=== PATIENT | female | born 1960 | race Caucasian/White ===

== ENCOUNTER 2017-12-21 14:34 | Inpatient (IN) ==
[2017-12-21] MEDS ORDERED: traMADol 50 MG TABLET PO PRN (18:59)
[2017-12-21] MEDS ORDERED: Nystatin POWDER 30 GM BOTTLE TP PRN (18:59)
[2017-12-21] MEDS ORDERED: Nystatin Cream 15 GM TUBE TP PRN (18:59)
[2017-12-21] MEDS: traZODone 50 MG TABLET PO PRN (20:50)
[2017-12-21] MEDS: *HR* OxyCODONE Immed Rel 5 MG TABLET PO PRN (20:50)
[2017-12-21] MEDS: Gabapentin 300 MG CAPSULE PO SCH (20:51)
[2017-12-21] MEDS: Loratadine 10 MG TABLET PO SCH (20:51)
[2017-12-21] MEDS: Topiramate 100 MG TABLET PO SCH (20:51)
[2017-12-21] MEDS: *HR* LORazepam 0.5 MG TABLET PO PRN (20:51)
[2017-12-22] MEDS: *HR* Enoxaparin 30 MG/0.3 ML SYRINGE SQ SCH ×2 (05:36→18:10)
[2017-12-22] MEDS: *HR* OxyCODONE Immed Rel 5 MG TABLET PO PRN ×3 (05:36→20:22)
[2017-12-22 06:17] LABS: Basophils % 0.4 %; Eosinophils % 0.3 %; Hematocrit 26.3 % (35.3-44.9); Hemoglobin 8.4 g/dL (11.5-15.4); Immature Granulocytes % 1.1 % (0-4); Lymphocytes # 1.7 K/mcL (0.6-4.6); Lymphocytes % 17.2 %; Mean Corpuscular HGB Conc 31.9 g/dL (31.6-35.5); Mean Corpuscular Hemoglobin 30.2 pg (28.0-33.3); Mean Corpuscular Volume 94.6 fL (83.0-100.0); Mean Platelet Volume 9.6 fL (9.4-12.4); Monocytes # 1.2 K/mcL (0.0-1.3); Monocytes % 11.5 %; Platelet Count 201 K/mcL (140-400); Red Blood Count 2.78 M/mcL (3.82-4.97); Red Cell Distribution Width 15.2 % (11.5-14.5); Segmented Neutrophils % 69.5 %
[2017-12-22 06:33] LABS: INR 1.3; Prothrombin Time 14.5 Seconds (9.4-12.1)
[2017-12-22 06:36] LABS: Activated Partial Thrombo Time 30.7 Seconds (26.0-36.0)
[2017-12-22 06:46] LABS: BUN/Creatinine Ratio 21 (6-26); Blood Urea Nitrogen 13 mg/dL (6-20); Calcium 9.4 mg/dL (8.6-10.3); Carbon Dioxide 20 mEq/L (23-29); Chloride 100 mEq/L (98-107); Glucose 123 mg/dL (70-105); Osmolality,Calculated 273 (280-300); Potassium 3.8 mEq/L (3.5-5.1); Sodium 131 mEq/L (136-145); eGFR For Non-African Americans > 60 (> 60)
[2017-12-22] MEDS: Topiramate 100 MG TABLET PO SCH ×2 (10:08→20:22)
[2017-12-22] MEDS: Gabapentin 300 MG CAPSULE PO SCH ×3 (10:09→20:22)
[2017-12-22] MEDS: Furosemide 20 MG TABLET PO SCH (14:46)
[2017-12-22] MEDS ORDERED: *HR* OxyCODONE Immed Rel 5 MG TABLET PO PRN (16:37)
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
[2017-12-22] MEDS ORDERED: *HR* Warfarin 5 MG TABLET PO SCH (18:00)
[2017-12-22] MEDS: MOM Conc 10 ML UD.LIQ PO SCH (18:12)
[2017-12-22] MEDS: *HR* FentaNYL PATCH 12 MCG PATCH TD SCH (18:13)
[2017-12-22] MEDS: *HR* Warfarin 5 MG TABLET PO SCH (18:13)
[2017-12-22] MEDS: Acetaminophen 325 MG TABLET PO SCH (18:13)
[2017-12-22] MEDS: traZODone 50 MG TABLET PO PRN (20:21)
[2017-12-22] MEDS: Loratadine 10 MG TABLET PO SCH (20:22)
[2017-12-23] MEDS: Acetaminophen 325 MG TABLET PO SCH ×4 (00:59→17:21)
[2017-12-23] MEDS: *HR* OxyCODONE Immed Rel 5 MG TABLET PO PRN ×3 (06:19→21:19)
[2017-12-23] MEDS: *HR* Enoxaparin 30 MG/0.3 ML SYRINGE SQ SCH ×2 (06:19→17:08)
[2017-12-23] MEDS: Gabapentin 300 MG CAPSULE PO SCH ×3 (09:36→22:41)
--- NOTE | 2017-12-23 09:36 | Internal Med Progress Note ---
Date of Encounter: 12/23/17 Time of Encounter: 09:25 - Assessment and plan (1) Status post total knee replacement, left Current Visit: No Status: Acute Assessment and plan: December 23. Continue therapy. Continue Lovenox until Coumadin dose therapeutic. (2) Anemia Current Visit: Yes Status: Acute Assessment and plan: December 23. Recheck CBC today. Qualifiers: Anemia type: unspecified type Qualified Code(s): D64.9 - Anemia, unspecified (3) Cardiomyopathy Current Visit: No Status: Acute Assessment and plan: December 23. Check Bn peptide Qualifiers: Cardiomyopathy type: unspecified Qualified Code(s): I42.9 - Cardiomyopathy, unspecified (4) CHF (congestive heart failure) Current Visit: No Status: Chronic Assessment and plan: December 23. As above Qualifiers: Qualified Code(s): I50.23 - Acute on chronic systolic (congestive) heart failure (5) History of pulmonary embolism Current Visit: No Status: Acute Assessment and plan: December 23. Monitor INR (6) HTN (hypertension) Current Visit: No Status: Chronic Assessment and plan: December 23. Hold metoprol today since borderline hypotensive. Qualifiers: Hypertension type: essential hypertension Qualified Code(s): I10 - Essential (primary) hypertension - Subjective Interval history: December 23. She has no new complaints. She states the Duragesic patch has lessened but not resolved her pain - Constitutional Vitals: Temp Pulse Resp BP Pulse Ox 97.7 F 92 17 99/62 97 12/23/17 07:00 12/23/17 07:00 12/23/17 07:00 12/23/17 07:00 12/23/17 07:00 Exam: She is resting comfortably in bed and appears in no acute distress. Her affect is bright and cheerful. I reviewed her medications, vitals, and lab results. Internal Medicine: Result - Labs CBC & Chem 7: 12/22/17 05:25 12/22/17 05:25 - ABG Interpretation ABG results: PT/INR, D-dimer PT 14.5 Seconds (9.4-12.1) H 12/22/17 05:25 Consult Discharge Plan - Plan Referrals: Aylin Smith MD [Primary Care Provider] - 1 week
[2017-12-23] MEDS: Topiramate 100 MG TABLET PO SCH ×2 (09:37→21:17)
[2017-12-23] MEDS: Methyl Salicylate/Menthol 28 GM TUBE TP SCH (09:38)
[2017-12-23] MEDS: Furosemide 20 MG TABLET PO SCH (09:38)
[2017-12-23 09:59] LABS: Basophils % 0.5 %; Eosinophils # 0.1 K/mcL (0.0-0.6); Eosinophils % 1.5 %; Hematocrit 27.8 % (35.3-44.9); Hemoglobin 8.9 g/dL (11.5-15.4); Lymphocytes # 1.5 K/mcL (0.6-4.6); Lymphocytes % 17.8 %; Mean Corpuscular Volume 93.6 fL (83.0-100.0); Mean Platelet Volume 8.9 fL (9.4-12.4); Monocytes # 1.3 K/mcL (0.0-1.3); Monocytes % 15.3 %; Neutrophils # 5.5 K/mcL (1.6-8.9); Platelet Count 227 K/mcL (140-400); Red Blood Count 2.97 M/mcL (3.82-4.97); Red Cell Distribution Width 15.1 % (11.5-14.5); Segmented Neutrophils % 63.9 %
[2017-12-23 10:30] LABS: BUN/Creatinine Ratio 29 (6-26); Blood Urea Nitrogen 20 mg/dL (6-20); Carbon Dioxide 23 mEq/L (23-29); Chloride 103 mEq/L (98-107); Glucose 115 mg/dL (70-105); Osmolality,Calculated 280 (280-300); Potassium 4.3 mEq/L (3.5-5.1); Sodium 133 mEq/L (136-145); eGFR For Non-African Americans > 60 (> 60)
[2017-12-23] MEDS: *HR* Warfarin 5 MG TABLET PO SCH (17:14)
[2017-12-23] MEDS: traZODone 50 MG TABLET PO PRN (21:17)
[2017-12-23] MEDS: Loratadine 10 MG TABLET PO SCH (21:18)
[2017-12-23] MEDS: *HR* LORazepam 0.5 MG TABLET PO PRN (22:41)
[2017-12-24] MEDS: Acetaminophen 325 MG TABLET PO SCH ×4 (00:59→17:42)
[2017-12-24] MEDS: *HR* OxyCODONE Immed Rel 5 MG TABLET PO PRN ×5 (03:01→21:28)
[2017-12-24] MEDS: *HR* Enoxaparin 30 MG/0.3 ML SYRINGE SQ SCH ×2 (06:29→17:23)
[2017-12-24] MEDS: Furosemide 20 MG TABLET PO SCH (08:20)
[2017-12-24] MEDS: Gabapentin 300 MG CAPSULE PO SCH ×3 (08:32→21:26)
[2017-12-24] MEDS: Topiramate 100 MG TABLET PO SCH ×2 (08:33→21:26)
[2017-12-24] MEDS: Methyl Salicylate/Menthol 28 GM TUBE TP SCH (08:48)
[2017-12-24] MEDS: MOM Conc 10 ML UD.LIQ PO SCH (17:19)
[2017-12-24] MEDS: *HR* Warfarin 5 MG TABLET PO SCH (17:20)
--- NOTE | 2017-12-24 17:54 | Internal Med Progress Note ---
Date of Encounter: 12/24/17 Time of Encounter: 17:40 - Assessment and plan (1) Status post total knee replacement, left Current Visit: No Status: Acute Assessment and plan: December 23. Continue therapy. Continue Lovenox until Coumadin dose therapeutic. December 24. Check pro time in a.m. (2) Anemia Current Visit: Yes Status: Acute Assessment and plan: December 23. Recheck CBC today. December 24. Hemoglobin improved to 8.9 yesterday. Recheck labs in a.m. Qualifiers: Anemia type: unspecified type Qualified Code(s): D64.9 - Anemia, unspecified (3) Cardiomyopathy Current Visit: No Status: Acute Assessment and plan: December 23. Check Bn peptide December 24. BN peptide normal at 17. Continue Lasix and Lopressor. Qualifiers: Cardiomyopathy type: unspecified Qualified Code(s): I42.9 - Cardiomyopathy, unspecified (4) CHF (congestive heart failure) Current Visit: No Status: Chronic Assessment and plan: December 23. As above Qualifiers: Qualified Code(s): I50.23 - Acute on chronic systolic (congestive) heart failure (5) History of pulmonary embolism Current Visit: No Status: Acute Assessment and plan: December 23. Monitor INR December 24. Check INR in a.m. Continue Coumadin and Lovenox. (6) HTN (hypertension) Current Visit: No Status: Chronic Assessment and plan: December 23. Hold metoprol today since borderline hypotensive. December 24. Borderline hypotensive. Decrease metoprolol to 25 mg twice a day. Qualifiers: Hypertension type: essential hypertension Qualified Code(s): I10 - Essential (primary) hypertension - Subjective Interval history: December 23. She has no new complaints. She states the Duragesic patch has lessened but not resolved her pain December 24. She has no new complaints. She reports her pain has not significantly changed since yesterday. She reports she is taking Reglan for migraine headache treatment rather than for nausea. - Constitutional Vitals: Temp Pulse Resp BP Pulse Ox 98.3 F 86 18 98/60 96 12/24/17 07:55 12/24/17 07:55 12/24/17 07:55 12/24/17 07:55 12/24/17 07:55 Exam: She is resting comfortably in bed and appears in no acute distress. Her affect is overall cheerful. I reviewed her medications and lab results. Internal Medicine: Result - Labs CBC & Chem 7: 12/23/17 09:51 12/23/17 09:51 - ABG Interpretation ABG results: PT/INR, D-dimer PT 14.5 Seconds (9.4-12.1) H 12/22/17 05:25 Consult Discharge Plan - Plan Referrals: Aylin Smith MD [Primary Care Provider] - 1 week
[2017-12-24] MEDS: traZODone 50 MG TABLET PO PRN (21:26)
[2017-12-24] MEDS: *HR* LORazepam 0.5 MG TABLET PO PRN (21:27)
[2017-12-24] MEDS: Loratadine 10 MG TABLET PO SCH (21:28)
[2017-12-25] MEDS: Acetaminophen 325 MG TABLET PO SCH ×4 (00:17→17:07)
[2017-12-25] MEDS: *HR* OxyCODONE Immed Rel 5 MG TABLET PO PRN ×5 (03:43→20:34)
[2017-12-25] MEDS: *HR* Enoxaparin 30 MG/0.3 ML SYRINGE SQ SCH ×2 (06:26→17:07)
[2017-12-25 06:33] LABS: Basophils # 0.1 K/mcL (0.0-0.2); Basophils % 0.8 %; Eosinophils # 0.3 K/mcL (0.0-0.6); Eosinophils % 3.5 %; Hematocrit 27.2 % (35.3-44.9); Hemoglobin 8.7 g/dL (11.5-15.4); Immature Granulocytes % 1.4 % (0-4); Lymphocytes # 1.6 K/mcL (0.6-4.6); Lymphocytes % 19.7 %; Mean Corpuscular Volume 93.8 fL (83.0-100.0); Mean Platelet Volume 8.9 fL (9.4-12.4); Monocytes % 12.4 %; Neutrophils # 5.1 K/mcL (1.6-8.9); Platelet Count 360 K/mcL (140-400); Red Cell Distribution Width 14.6 % (11.5-14.5); Segmented Neutrophils % 62.2 %
[2017-12-25 06:43] LABS: INR 1.4; Prothrombin Time 15.5 Seconds (9.4-12.1)
[2017-12-25] MEDS: Gabapentin 300 MG CAPSULE PO SCH ×3 (07:45→20:35)
[2017-12-25] MEDS: Topiramate 100 MG TABLET PO SCH ×2 (07:45→20:33)
[2017-12-25] MEDS: Methyl Salicylate/Menthol 28 GM TUBE TP SCH (07:46)
[2017-12-25] MEDS: Furosemide 20 MG TABLET PO SCH (07:51)
[2017-12-25] MEDS: *HR* Warfarin 5 MG TABLET PO SCH (17:07)
[2017-12-25] MEDS: *HR* FentaNYL PATCH 12 MCG PATCH TD SCH (17:08)
[2017-12-25] MEDS ORDERED: *HR* Warfarin 5 MG TABLET PO SCH (18:00)
[2017-12-25] MEDS: *HR* LORazepam 0.5 MG TABLET PO PRN (20:33)
[2017-12-25] MEDS: Loratadine 10 MG TABLET PO SCH (20:34)
[2017-12-25] MEDS: traZODone 50 MG TABLET PO PRN (20:35)
[2017-12-26] MEDS: Acetaminophen 325 MG TABLET PO SCH ×4 (01:47→17:06)
[2017-12-26] MEDS: *HR* OxyCODONE Immed Rel 5 MG TABLET PO PRN ×5 (02:28→22:00)
[2017-12-26] MEDS: *HR* Enoxaparin 30 MG/0.3 ML SYRINGE SQ SCH ×2 (05:44→17:06)
[2017-12-26] MEDS: Gabapentin 300 MG CAPSULE PO SCH ×3 (09:07→20:43)
[2017-12-26] MEDS: Furosemide 20 MG TABLET PO SCH (09:08)
[2017-12-26] MEDS: Topiramate 100 MG TABLET PO SCH ×2 (09:08→20:43)
[2017-12-26] MEDS: Methyl Salicylate/Menthol 28 GM TUBE TP SCH (09:09)
--- NOTE | 2017-12-26 12:46 | Internal Med Progress Note ---
Date of Encounter: 12/26/17 Time of Encounter: 12:35 - Assessment and plan (1) Status post total knee replacement, left Current Visit: No Status: Acute Assessment and plan: December 23. Continue therapy. Continue Lovenox until Coumadin dose therapeutic. December 24. Check pro time in a.m. December 26. INR subtherapeutic at 1.4. Increase Coumadin dose to 7 mg daily and continue to monitor INR. (2) Anemia Current Visit: Yes Status: Acute Assessment and plan: December 23. Recheck CBC today. December 24. Hemoglobin improved to 8.9 yesterday. Recheck labs in a.m. December 26. Hemoglobin decreased to 8.7. Check anemia testing in a.m. Qualifiers: Anemia type: unspecified type Qualified Code(s): D64.9 - Anemia, unspecified (3) Cardiomyopathy Current Visit: No Status: Acute Assessment and plan: December 23. Check Bn peptide December 24. BN peptide normal at 17. Continue Lasix and Lopressor. Qualifiers: Cardiomyopathy type: unspecified Qualified Code(s): I42.9 - Cardiomyopathy, unspecified (4) CHF (congestive heart failure) Current Visit: No Status: Chronic Assessment and plan: December 23. As above Qualifiers: Qualified Code(s): I50.23 - Acute on chronic systolic (congestive) heart failure (5) History of pulmonary embolism Current Visit: No Status: Acute Assessment and plan: December 23. Monitor INR December 24. Check INR in a.m. Continue Coumadin and Lovenox. December 26. INR 1.4. Increase Coumadin to 7 mg daily (6) HTN (hypertension) Current Visit: No Status: Chronic Assessment and plan: December 23. Hold metoprol today since borderline hypotensive. December 24. Borderline hypotensive. Decrease metoprolol to 25 mg twice a day. Qualifiers: Hypertension type: essential hypertension Qualified Code(s): I10 - Essential (primary) hypertension - Subjective Interval history: December 23. She has no new complaints. She states the Duragesic patch has lessened but not resolved her pain December 24. She has no new complaints. She reports her pain has not significantly changed since yesterday. She reports she is taking Reglan for migraine headache treatment rather than for nausea. December 26. She has no new complaints and states her pain is minimally changed. - Constitutional Vitals: Temp Pulse Resp BP Pulse Ox 98.3 F 98 16 99/65 96 12/26/17 07:25 12/26/17 07:25 12/26/17 07:25 12/26/17 07:25 12/26/17 07:25 Exam: She is lying in bed and appears in minimal discomfort. She becomes tearful when she describes her pain. I reviewed her medications and lab results. Internal Medicine: Result - Labs CBC & Chem 7: 12/25/17 06:15 12/23/17 09:51 - ABG Interpretation ABG results: PT/INR, D-dimer PT 15.5 Seconds (9.4-12.1) H 12/25/17 06:15 Consult Discharge Plan - Plan Referrals: Aylin Smith MD [Primary Care Provider] - 1 week
[2017-12-26] MEDS: *HR* Warfarin 2 MG TABLET PO SCH (17:07)
[2017-12-26] MEDS: *HR* Warfarin 5 MG TABLET PO SCH (17:07)
[2017-12-26] MEDS: MOM Conc 10 ML UD.LIQ PO SCH (17:08)
[2017-12-26] MEDS: traMADol 50 MG TABLET PO SCH ×2 (17:12→20:44)
[2017-12-26] MEDS: Loratadine 10 MG TABLET PO SCH (20:42)
[2017-12-26] MEDS: traZODone 50 MG TABLET PO PRN (20:43)
[2017-12-26] MEDS: *HR* LORazepam 0.5 MG TABLET PO PRN (22:00)
[2017-12-27] MEDS: Acetaminophen 325 MG TABLET PO SCH ×5 (00:59→22:33)
[2017-12-27] MEDS: *HR* OxyCODONE Immed Rel 5 MG TABLET PO PRN ×5 (04:23→22:33)
[2017-12-27] MEDS: *HR* Enoxaparin 30 MG/0.3 ML SYRINGE SQ SCH ×2 (05:46→18:47)
[2017-12-27 07:02] LABS: Basophils # 0.1 K/mcL (0.0-0.2); Basophils % 0.8 %; Eosinophils # 0.3 K/mcL (0.0-0.6); Eosinophils % 3.3 %; Hemoglobin 8.1 g/dL (11.5-15.4); Immature Granulocytes % 3.9 % (0-4); Lymphocytes # 1.9 K/mcL (0.6-4.6); Lymphocytes % 21.9 %; Mean Corpuscular HGB Conc 31.2 g/dL (31.6-35.5); Mean Corpuscular Hemoglobin 29.8 pg (28.0-33.3); Mean Corpuscular Volume 95.6 fL (83.0-100.0); Mean Platelet Volume 8.7 fL (9.4-12.4); Monocytes # 1.1 K/mcL (0.0-1.3); Monocytes % 12.8 %; Nucleated Red Blood Cells 0.3 /100 WBC (0); Platelet Count 405 K/mcL (140-400); Red Blood Count 2.72 M/mcL (3.82-4.97); Red Cell Distribution Width 14.8 % (11.5-14.5); Segmented Neutrophils % 57.3 %
[2017-12-27] MEDS: Methyl Salicylate/Menthol 28 GM TUBE TP SCH (09:34)
[2017-12-27] MEDS: Furosemide 20 MG TABLET PO SCH (09:35)
[2017-12-27] MEDS: Gabapentin 300 MG CAPSULE PO SCH ×3 (09:36→20:54)
[2017-12-27] MEDS: Topiramate 100 MG TABLET PO SCH ×2 (09:36→20:55)
[2017-12-27] MEDS: traMADol 50 MG TABLET PO SCH ×4 (09:42→20:55)
[2017-12-27 09:53] LABS: % Iron Saturation 12 % (15-50); Iron 39 mcg/dL (50-170); Transferrin 237 mg/dL (203-362)
[2017-12-27 10:12] LABS: Ferritin 69 ng/mL (10-120)
[2017-12-27 10:19] LABS: Folate 6.7 ng/mL (3.0-16.0)
[2017-12-27] MEDS: *HR* Warfarin 5 MG TABLET PO SCH (18:48)
[2017-12-27] MEDS: *HR* Warfarin 2 MG TABLET PO SCH (18:48)
[2017-12-27] MEDS: *HR* LORazepam 0.5 MG TABLET PO PRN (20:53)
[2017-12-27] MEDS: traZODone 50 MG TABLET PO PRN (20:53)
[2017-12-27] MEDS: Loratadine 10 MG TABLET PO SCH (20:55)
[2017-12-28] MEDS: *HR* OxyCODONE Immed Rel 5 MG TABLET PO PRN ×5 (03:27→23:57)
[2017-12-28] MEDS: Acetaminophen 325 MG TABLET PO SCH ×3 (06:42→17:10)
[2017-12-28] MEDS: *HR* Enoxaparin 30 MG/0.3 ML SYRINGE SQ SCH ×2 (06:43→17:10)
[2017-12-28] MEDS: Topiramate 100 MG TABLET PO SCH ×2 (07:49→20:38)
[2017-12-28] MEDS: Gabapentin 300 MG CAPSULE PO SCH ×3 (07:50→20:38)
[2017-12-28] MEDS: Furosemide 20 MG TABLET PO SCH (07:50)
[2017-12-28] MEDS: Methyl Salicylate/Menthol 28 GM TUBE TP SCH ×2 (07:55→23:58)
[2017-12-28] MEDS: traMADol 50 MG TABLET PO SCH ×4 (07:55→23:56)
[2017-12-28] MEDS ORDERED: Cyanocobalamin (B-12) 1,000 MCG/ML VIAL IM ONE (12:42)
--- NOTE | 2017-12-28 12:51 | Internal Med Progress Note ---
Date of Encounter: 12/28/17 Time of Encounter: 12:42 - Assessment and plan (1) Status post total knee replacement, left Current Visit: No Status: Acute Assessment and plan: December 23. Continue therapy. Continue Lovenox until Coumadin dose therapeutic. December 24. Check pro time in a.m. December 26. INR subtherapeutic at 1.4. Increase Coumadin dose to 7 mg daily and continue to monitor INR. December 28. Check INR and other labs today. Venous ultrasound will be done later today to evaluate for DVT. (2) Anemia Current Visit: Yes Status: Acute Assessment and plan: December 23. Recheck CBC today. December 24. Hemoglobin improved to 8.9 yesterday. Recheck labs in a.m. December 26. Hemoglobin decreased to 8.7. Check anemia testing in a.m. December 28. Anemia testing showed iron 39, transferrin saturation 12%, transferrin 237, ferritin 69, B12 166, and folate 6.7. She will receive a B12 injection and start oral ferrous sulfate and ascorbic acid tomorrow. Qualifiers: Anemia type: unspecified type Qualified Code(s): D64.9 - Anemia, unspecified (3) Cardiomyopathy Current Visit: No Status: Acute Assessment and plan: December 23. Check Bn peptide December 24. BN peptide normal at 17. Continue Lasix and Lopressor. Qualifiers: Cardiomyopathy type: unspecified Qualified Code(s): I42.9 - Cardiomyopathy, unspecified (4) CHF (congestive heart failure) Current Visit: No Status: Chronic Assessment and plan: December 23. As above Qualifiers: Qualified Code(s): I50.23 - Acute on chronic systolic (congestive) heart failure (5) History of pulmonary embolism Current Visit: No Status: Acute Assessment and plan: December 23. Monitor INR December 24. Check INR in a.m. Continue Coumadin and Lovenox. December 26. INR 1.4. Increase Coumadin to 7 mg daily December 28. Check INR today. (6) HTN (hypertension) Current Visit: No Status: Chronic Assessment and plan: December 23. Hold metoprol today since borderline hypotensive. December 24. Borderline hypotensive. Decrease metoprolol to 25 mg twice a day. December 28. Continue present dose metoprolol. Qualifiers: Hypertension type: essential hypertension Qualified Code(s): I10 - Essential (primary) hypertension - Subjective Interval history: December 23. She has no new complaints. She states the Duragesic patch has lessened but not resolved her pain December 24. She has no new complaints. She reports her pain has not significantly changed since yesterday. She reports she is taking Reglan for migraine headache treatment rather than for nausea. December 26. She has no new complaints and states her pain is minimally changed. December 28. She has no new complaints. She saw the orthopedist staff today. There was concern she might have a leg DVT she has history of DVTs and complained of significant leg pain. Venous ultrasound was ordered and will be done later today. She was ordered topical Voltaren to alternate with topical BenGay. - Constitutional Vitals: Temp Pulse Resp BP Pulse Ox 97.7 F 96 16 111/74 97 12/28/17 06:46 12/28/17 06:46 12/28/17 06:46 12/28/17 06:46 12/28/17 06:46 Exam: She is resting comfortably in bed and appears in no severe distress. Her affect is more cheerful today. I reviewed her medications and lab results. Internal Medicine: Result - Labs CBC & Chem 7: 12/27/17 06:44 12/23/17 09:51 - ABG Interpretation ABG results: PT/INR, D-dimer PT 15.5 Seconds (9.4-12.1) H 12/25/17 06:15 Consult Discharge Plan - Plan Referrals: Aylin Smith MD [Primary Care Provider] - 1 week
[2017-12-28 14:48] LABS: Basophils # 0.1 K/mcL (0.0-0.2); Basophils % 0.6 %; Eosinophils # 0.3 K/mcL (0.0-0.6); Eosinophils % 3.4 %; Hematocrit 25.3 % (35.3-44.9); Hemoglobin 7.9 g/dL (11.5-15.4); Immature Granulocytes % 4.4 % (0-4); Lymphocytes # 1.9 K/mcL (0.6-4.6); Lymphocytes % 20.3 %; Mean Corpuscular HGB Conc 31.2 g/dL (31.6-35.5); Mean Corpuscular Hemoglobin 30.5 pg (28.0-33.3); Mean Corpuscular Volume 97.7 fL (83.0-100.0); Monocytes # 1.1 K/mcL (0.0-1.3); Monocytes % 11.9 %; Neutrophils # 5.7 K/mcL (1.6-8.9); Nucleated Red Blood Cells 0.5 /100 WBC (0); Platelet Count 430 K/mcL (140-400); Red Blood Count 2.59 M/mcL (3.82-4.97); Red Cell Distribution Width 15.1 % (11.5-14.5); Segmented Neutrophils % 59.4 %
[2017-12-28 14:55] LABS: INR 1.5; Prothrombin Time 16.4 Seconds (9.4-12.1)
[2017-12-28 15:03] LABS: BUN/Creatinine Ratio 34 (6-26); Blood Urea Nitrogen 24 mg/dL (6-20); Calcium 8.6 mg/dL (8.6-10.3); Carbon Dioxide 25 mEq/L (23-29); Chloride 105 mEq/L (98-107); Glucose 107 mg/dL (70-105); Osmolality,Calculated 289 (280-300); Potassium 3.8 mEq/L (3.5-5.1); Sodium 137 mEq/L (136-145); eGFR For Non-African Americans > 60 (> 60)
[2017-12-28] MEDS: *HR* Warfarin 2 MG TABLET PO SCH (17:09)
[2017-12-28] MEDS: *HR* Warfarin 5 MG TABLET PO SCH (17:09)
[2017-12-28] MEDS: *HR* FentaNYL PATCH 12 MCG PATCH TD SCH (17:10)
[2017-12-28] MEDS: MOM Conc 10 ML UD.LIQ PO SCH (17:11)
[2017-12-28] MEDS: VOLTAREN 1% GEL TP SCH (20:08)
[2017-12-28] MEDS: *HR* LORazepam 0.5 MG TABLET PO PRN (20:36)
[2017-12-28] MEDS: traZODone 50 MG TABLET PO PRN (20:37)
[2017-12-28] MEDS: Loratadine 10 MG TABLET PO SCH (20:38)
[2017-12-29] MEDS ORDERED: Methyl Salicylate/Menthol 28 GM TUBE TP SCH
[2017-12-29] MEDS: Acetaminophen 325 MG TABLET PO SCH ×4 (02:33→17:59)
[2017-12-29] MEDS: *HR* OxyCODONE Immed Rel 5 MG TABLET PO PRN ×5 (04:14→21:39)
[2017-12-29] MEDS: Ascorbic Acid 500 MG TABLET PO SCH (06:48)
[2017-12-29] MEDS: *HR* Enoxaparin 30 MG/0.3 ML SYRINGE SQ SCH ×2 (06:49→17:58)
[2017-12-29] MEDS: VOLTAREN 1% GEL TP SCH ×3 (07:38→18:01)
[2017-12-29] MEDS: traMADol 50 MG TABLET PO SCH ×4 (08:04→21:55)
[2017-12-29] MEDS: Furosemide 20 MG TABLET PO SCH (08:04)
[2017-12-29] MEDS: Gabapentin 300 MG CAPSULE PO SCH ×3 (08:05→21:39)
[2017-12-29] MEDS: Topiramate 100 MG TABLET PO SCH ×2 (08:05→21:40)
[2017-12-29] MEDS: Methyl Salicylate/Menthol 28 GM TUBE TP SCH ×2 (08:08→21:42)
--- NOTE | 2017-12-29 14:53 | Internal Med Progress Note ---
Date of Encounter: 12/29/17 Time of Encounter: 14:45 - Assessment and plan (1) Status post total knee replacement, left Current Visit: No Status: Acute Assessment and plan: December 23. Continue therapy. Continue Lovenox until Coumadin dose therapeutic. December 24. Check pro time in a.m. December 26. INR subtherapeutic at 1.4. Increase Coumadin dose to 7 mg daily and continue to monitor INR. December 28. Check INR and other labs today. Venous ultrasound will be done later today to evaluate for DVT. December 29. INR was 1.5 yesterday. Continue present dose Coumadin and recheck in a.m. Venous ultrasound showed no DVT. (2) Anemia Current Visit: Yes Status: Acute Assessment and plan: December 23. Recheck CBC today. December 24. Hemoglobin improved to 8.9 yesterday. Recheck labs in a.m. December 26. Hemoglobin decreased to 8.7. Check anemia testing in a.m. December 28. Anemia testing showed iron 39, transferrin saturation 12%, transferrin 237, ferritin 69, B12 166, and folate 6.7. She will receive a B12 injection and start oral ferrous sulfate and ascorbic acid tomorrow. December 29. Hemoglobin decreased slightly to 7.9 yesterday. BUN has risen to 24. I told her I suspected she might have a very slow upper GI source of blood loss. Continue to monitor. Qualifiers: Anemia type: unspecified type Qualified Code(s): D64.9 - Anemia, u nspecified (3) Cardiomyopathy Current Visit: No Status: Acute Assessment and plan: December 23. Check Bn peptide December 24. BN peptide normal at 17. Continue Lasix and Lopressor. Qualifiers: Cardiomyopathy type: unspecified Qualified Code(s): I42.9 - Cardiomyopathy, unspecified (4) CHF (congestive heart failure) Current Visit: No Status: Chronic Assessment and plan: December 23. As above Qualifiers: Qualified Code(s): I50.23 - Acute on chronic systolic (congestive) heart failure (5) History of pulmonary embolism Current Visit: No Status: Acute Assessment and plan: December 23. Monitor INR December 24. Check INR in a.m. Continue Coumadin and Lovenox. December 26. INR 1.4. Increase Coumadin to 7 mg daily December 28. Check INR today. December 29. Recheck INR in a.m. (6) HTN (hypertension) Current Visit: No Status: Chronic Assessment and plan: December 23. Hold metoprol today since borderline hypotensive. December 24. Borderline hypotensive. Decrease metoprolol to 25 mg twice a day. December 28. Continue present dose metoprolol. Qualifiers: Hypertension type: essential hypertension Qualified Code(s): I10 - Essential (primary) hypertension - Subjective Interval history: December 23. She has no new complaints. She states the Duragesic patch has lessened but not resolved her pain December 24. She has no new complaints. She reports her pain has not significantly changed since yesterday. She reports she is taking Reglan for migraine headache treatment rather than for nausea. December 26. She has no new complaints and states her pain is minimally changed. December 28. She has no new complaints. She saw the orthopedist staff today. There was concern she might have a leg DVT she has history of DVTs and complained of significant leg pain. Venous ultrasound was ordered and will be done later today. She was ordered topical Voltaren to alternate with topical BenGay. December 29. She has no new complaints. She states her pain is very gradually lessening. - Constitutional Vitals: Temp Pulse Resp BP Pulse Ox 98.3 F 90 16 97/63 96 12/29/17 06:33 12/29/17 06:33 12/29/17 06:33 12/29/17 06:33 12/29/17 06:33 Exam: She is resting comfortably in bed and appears in no acute distress. Her affect is overall cheerful. I reviewed her medications and lab results. Internal Medicine: Result - Labs CBC & Chem 7: 12/28/17 14:40 12/28/17 14:40 Labs: BMP 12/28/17 14:40 Sodium 137 Potassium 3.8 Chloride 105 Carbon Dioxide 25 BUN 24 H Creatinine 0.70 Glucose 107 H Calcium 8.6 - ABG Interpretation ABG results: PT/INR, D-dimer PT 16.4 Seconds (9.4-12.1) H 12/28/17 14:40 Consult Discharge Plan - Plan Referrals: Aylin Smith MD [Primary Care Provider] - 1 week
[2017-12-29] MEDS: *HR* Warfarin 5 MG TABLET PO SCH (17:59)
[2017-12-29] MEDS: *HR* Warfarin 2 MG TABLET PO SCH (17:59)
[2017-12-29] MEDS: traZODone 50 MG TABLET PO PRN (21:39)
[2017-12-29] MEDS: Loratadine 10 MG TABLET PO SCH (21:39)
[2017-12-29] MEDS: *HR* LORazepam 0.5 MG TABLET PO PRN (21:41)
[2017-12-30] MEDS: *HR* OxyCODONE Immed Rel 5 MG TABLET PO PRN ×4 (04:39→17:20)
[2017-12-30] MEDS: VOLTAREN 1% GEL TP SCH ×3 (06:35→17:36)
[2017-12-30] MEDS: Ascorbic Acid 500 MG TABLET PO SCH (06:35)
[2017-12-30] MEDS: *HR* Enoxaparin 30 MG/0.3 ML SYRINGE SQ SCH ×2 (06:35→17:17)
[2017-12-30] MEDS: Acetaminophen 325 MG TABLET PO SCH ×4 (06:35→17:22)
[2017-12-30 06:48] LABS: Basophils # 0.1 K/mcL (0.0-0.2); Basophils % 0.7 %; Eosinophils # 0.3 K/mcL (0.0-0.6); Eosinophils % 3.5 %; Hematocrit 24.8 % (35.3-44.9); Hemoglobin 7.6 g/dL (11.5-15.4); Immature Granulocytes % 4.8 % (0-4); Lymphocytes # 1.8 K/mcL (0.6-4.6); Lymphocytes % 20.9 %; Mean Corpuscular HGB Conc 30.6 g/dL (31.6-35.5); Mean Corpuscular Hemoglobin 29.9 pg (28.0-33.3); Mean Corpuscular Volume 97.6 fL (83.0-100.0); Mean Platelet Volume 8.1 fL (9.4-12.4); Monocytes % 10.8 %; Neutrophils # 5.2 K/mcL (1.6-8.9); Nucleated Red Blood Cells 0.5 /100 WBC (0); Platelet Count 453 K/mcL (140-400); Red Blood Count 2.54 M/mcL (3.82-4.97); Red Cell Distribution Width 15.5 % (11.5-14.5); Segmented Neutrophils % 59.3 %
[2017-12-30 06:54] LABS: INR 1.7
[2017-12-30 07:07] LABS: BUN/Creatinine Ratio 35 (6-26); Blood Urea Nitrogen 19 mg/dL (6-20); Calcium 8.8 mg/dL (8.6-10.3); Carbon Dioxide 24 mEq/L (23-29); Chloride 104 mEq/L (98-107); Glucose 94 mg/dL (70-105); Osmolality,Calculated 284 (280-300); Potassium 3.8 mEq/L (3.5-5.1); Sodium 136 mEq/L (136-145); eGFR For Non-African Americans > 60 (> 60)
[2017-12-30] MEDS: Furosemide 20 MG TABLET PO SCH (07:59)
[2017-12-30] MEDS: Topiramate 100 MG TABLET PO SCH ×2 (08:00→20:27)
[2017-12-30] MEDS: Gabapentin 300 MG CAPSULE PO SCH ×3 (08:00→20:27)
[2017-12-30] MEDS: Methyl Salicylate/Menthol 28 GM TUBE TP SCH ×2 (08:01→20:29)
[2017-12-30] MEDS: traMADol 50 MG TABLET PO SCH ×4 (08:07→20:29)
--- NOTE | 2017-12-30 10:54 | Internal Med Progress Note ---
Date of Encounter: 12/30/17 Time of Encounter: 10:45 - Assessment and plan (1) Status post total knee replacement, left Current Visit: No Status: Acute Assessment and plan: December 23. Continue therapy. Continue Lovenox until Coumadin dose therapeutic. December 24. Check pro time in a.m. December 26. INR subtherapeutic at 1.4. Increase Coumadin dose to 7 mg daily and continue to monitor INR. December 28. Check INR and other labs today. Venous ultrasound will be done later today to evaluate for DVT. December 29. INR was 1.5 yesterday. Continue present dose Coumadin and recheck in a.m. Venous ultrasound showed no DVT. December 30. INR was 1.7 today. Continue Coumadin and continue to monitor INR. I told her I felt the left calf pain might be in her hamstring musculature and continued therapy will hopefully lessen the discomfort. (2) Anemia Current Visit: Yes Status: Acute Assessment and plan: December 23. Recheck CBC today. December 24. Hemoglobin improved to 8.9 yesterday. Recheck labs in a.m. December 26. Hemoglobin decreased to 8.7. Check anemia testing in a.m. December 28. Anemia testing showed iron 39, transferrin saturation 12%, transferrin 237, ferritin 69, B12 166, and folate 6.7. She will receive a B12 injection and start oral ferrous sulfate and ascorbic acid tomorrow. December 29. Hemoglobin decreased slightly to 7.9 yesterday. BUN has risen to 24. I told her I suspected she might have a very slow upper GI source of blood loss. Continue to monitor. December 30. Hemoglobin further decreased slightly to 7.6. BUN has decreased to 19 and creatinine decreased to 0.54. Continue to monitor. Qualifiers: Anemia type: unspecified type Qualified Code(s): D64.9 - Anemia, unspecified (3) Cardiomyopathy Current Visit: No Status: Acute Assessment and plan: December 23. Check Bn peptide December 24. BN peptide normal at 17. Continue Lasix and Lopressor. December 30. BN peptide has risen to 111. Continue Lasix and Lopressor and continue to monitor. Qualifiers: Cardiomyopathy type: unspecified Qualified Code(s): I42.9 - Cardiomyopathy, unspecified (4) CHF (congestive heart failure) Current Visit: No Status: Chronic Assessment and plan: December 23. As above Qualifiers: Qualified Code(s): I50.23 - Acute on chronic systolic (congestive) heart failure (5) History of pulmonary embolism Current Visit: No Status: Acute Assessment and plan: December 23. Monitor INR December 24. Check INR in a.m. Continue Coumadin and Lovenox. December 26. INR 1.4. Increase Coumadin to 7 mg daily December 28. Check INR today. December 29. Recheck INR in a.m. December 30. INR higher as per above. Continue Coumadin and Lovenox for now. (6) HTN (hypertension) Current Visit: No Status: Chronic Assessment and plan: December 23. Hold metoprol today since borderline hypotensive. December 24. Borderline hypotensive. Decrease metoprolol to 25 mg twice a day. December 28. Continue present dose metoprolol. Qualifiers: Hypertension type: essential hypertension Qualified Code(s): I10 - Essential (primary) hypertension - Subjective Interval history: December 23. She has no new complaints. She states the Duragesic patch has lessened but not resolved her pain December 24. She has no new complaints. She reports her pain has not significantly changed since yesterday. She reports she is taking Reglan for migraine headache treatment rather than for nausea. December 26. She has no new complaints and states her pain is minimally changed. December 28. She has no new complaints. She saw the orthopedist staff today. There was concern she might have a leg DVT she has history of DVTs and complained of significant leg pain. Venous ultrasound was ordered and will be done later today. She was ordered topical Voltaren to alternate with topical BenGay. December 29. She has no new complaints. She states her pain is very gradually lessening. December 30. She reports discomfort in her posterior thighs (more left side than right side) when sitting in a chair with her legs extended. - Constitutional Vitals: Temp Pulse Resp BP Pulse Ox 98.0 F 90 14 108/72 98 12/30/17 06:29 12/30/17 06:29 12/30/17 06:29 12/30/17 06:29 12/30/17 06:29 Exam: She has mild discomfort on straight leg raising on the left side when her aguilar mstring is stretched stating "that is the pain". She appears in no acute distress overall. I reviewed her medications and lab results. Internal Medicine: Result - Labs CBC & Chem 7: 12/30/17 06:10 12/30/17 06:10 Labs: Short CBC 12/30/17 Range/Units 06:10 WBC 8.8 (4.3-11.1) K/mcL Hgb 7.6 L (11.5-15.4) g/dL Hct 24.8 L (35.3-44.9) % Plt Count 453 H (140-400) K/mcL Neutrophils # 5.2 (1.6-8.9) K/mcL BMP 12/30/17 06:10 Sodium 136 Potassium 3.8 Chloride 104 Carbon Dioxide 24 BUN 19 Creatinine 0.54 L Glucose 94 Calcium 8.8 - ABG Interpretation ABG results: PT/INR, D-dimer PT 19.0 Seconds (9.4-12.1) H 12/30/17 06:10 Consult Discharge Plan - Plan Referrals: Aylin Smith MD [Primary Care Provider] - 1 week
[2017-12-30] MEDS: MOM Conc 10 ML UD.LIQ PO SCH (17:19)
[2017-12-30] MEDS: *HR* Warfarin 2 MG TABLET PO SCH (17:22)
[2017-12-30] MEDS: *HR* Warfarin 5 MG TABLET PO SCH (17:22)
[2017-12-30 19:59] LABS: Bilirubin,Urine Negative (Negative); Blood,Urine Negative (Negative); Clarity,Urine Clear (Clear); Color,Urine Yellow (Yellow); Glucose,Urine (UA) Normal (Normal); Ketones,Urine Negative (Negative); Leukocyte Esterase,Urine Negative (Negative); Nitrite,Urine Negative (Negative); Protein,Urine Negative (Neg-Trace); Specific Gravity,Urine 1.025 (1.010-1.025); Urobilinogen,Urine Normal (Normal)
[2017-12-30] MEDS: Loratadine 10 MG TABLET PO SCH (20:27)
[2017-12-30] MEDS: *HR* LORazepam 0.5 MG TABLET PO PRN (20:28)
[2017-12-30] MEDS: traZODone 50 MG TABLET PO PRN (20:30)
[2017-12-31] MEDS: Acetaminophen 325 MG TABLET PO SCH ×4 (00:25→18:34)
[2017-12-31] MEDS: *HR* OxyCODONE Immed Rel 5 MG TABLET PO PRN ×5 (00:25→18:34)
[2017-12-31] MEDS: Ascorbic Acid 500 MG TABLET PO SCH (06:10)
[2017-12-31] MEDS: *HR* Enoxaparin 30 MG/0.3 ML SYRINGE SQ SCH ×2 (06:11→18:32)
[2017-12-31] MEDS: VOLTAREN 1% GEL TP SCH ×3 (06:11→18:40)
[2017-12-31] MEDS: Furosemide 20 MG TABLET PO SCH (09:14)
[2017-12-31] MEDS: traMADol 50 MG TABLET PO SCH ×4 (09:14→20:47)
[2017-12-31] MEDS: Topiramate 100 MG TABLET PO SCH ×2 (09:14→20:37)
[2017-12-31] MEDS: Gabapentin 300 MG CAPSULE PO SCH ×3 (09:14→20:38)
[2017-12-31] MEDS: Methyl Salicylate/Menthol 28 GM TUBE TP SCH ×2 (11:12→20:39)
[2017-12-31] MEDS: *HR* Warfarin 5 MG TABLET PO SCH (18:33)
[2017-12-31] MEDS: *HR* Warfarin 2 MG TABLET PO SCH (18:33)
[2017-12-31] MEDS: *HR* FentaNYL PATCH 12 MCG PATCH TD SCH (18:35)
[2017-12-31] MEDS: Loratadine 10 MG TABLET PO SCH (20:37)
[2017-12-31] MEDS: *HR* LORazepam 0.5 MG TABLET PO PRN (20:38)
[2017-12-31] MEDS: traZODone 50 MG TABLET PO PRN (20:40)
[2018-01-01] MEDS: Acetaminophen 325 MG TABLET PO SCH ×4 (00:12→18:04)
[2018-01-01] MEDS: *HR* OxyCODONE Immed Rel 5 MG TABLET PO PRN ×5 (03:13→21:59)
[2018-01-01] MEDS: VOLTAREN 1% GEL TP SCH ×3 (06:35→18:06)
[2018-01-01] MEDS: *HR* Enoxaparin 30 MG/0.3 ML SYRINGE SQ SCH ×2 (06:36→17:14)
[2018-01-01] MEDS: Ascorbic Acid 500 MG TABLET PO SCH (06:37)
[2018-01-01] MEDS: Methyl Salicylate/Menthol 28 GM TUBE TP SCH ×2 (08:28→20:46)
[2018-01-01] MEDS: traMADol 50 MG TABLET PO SCH ×4 (08:28→20:41)
[2018-01-01] MEDS: Topiramate 100 MG TABLET PO SCH ×2 (08:29→20:46)
[2018-01-01] MEDS: Furosemide 20 MG TABLET PO SCH (08:29)
[2018-01-01] MEDS: Gabapentin 300 MG CAPSULE PO SCH ×3 (08:29→20:44)
[2018-01-01] MEDS: *HR* Warfarin 5 MG TABLET PO SCH (17:14)
[2018-01-01] MEDS: *HR* Warfarin 2 MG TABLET PO SCH (17:14)
[2018-01-01] MEDS: MOM Conc 10 ML UD.LIQ PO SCH (17:18)
[2018-01-01] MEDS: Loratadine 10 MG TABLET PO SCH (20:41)
[2018-01-01] MEDS: *HR* LORazepam 0.5 MG TABLET PO PRN (20:41)
[2018-01-02] MEDS: Acetaminophen 325 MG TABLET PO SCH ×4 (00:36→17:33)
[2018-01-02] MEDS: *HR* OxyCODONE Immed Rel 5 MG TABLET PO PRN ×4 (03:45→20:27)
[2018-01-02] MEDS: *HR* Enoxaparin 30 MG/0.3 ML SYRINGE SQ SCH ×2 (06:13→17:35)
[2018-01-02] MEDS: VOLTAREN 1% GEL TP SCH ×3 (06:13→17:35)
[2018-01-02] MEDS: Ascorbic Acid 500 MG TABLET PO SCH (06:13)
[2018-01-02] MEDS: traMADol 50 MG TABLET PO SCH ×4 (08:15→21:38)
[2018-01-02] MEDS: Gabapentin 300 MG CAPSULE PO SCH ×3 (08:15→21:38)
[2018-01-02] MEDS: Topiramate 100 MG TABLET PO SCH ×2 (08:15→21:39)
[2018-01-02] MEDS: Methyl Salicylate/Menthol 28 GM TUBE TP SCH ×2 (08:16→20:29)
[2018-01-02] MEDS: Furosemide 20 MG TABLET PO SCH (11:19)
[2018-01-02 11:46] LABS: Basophils # 0.1 K/mcL (0.0-0.2); Basophils % 0.7 %; Eosinophils # 0.2 K/mcL (0.0-0.6); Eosinophils % 2.2 %; Hematocrit 28.7 % (35.3-44.9); Hemoglobin 8.7 g/dL (11.5-15.4); Immature Granulocytes % 1.5 % (0-4); Lymphocytes # 1.3 K/mcL (0.6-4.6); Mean Corpuscular HGB Conc 30.3 g/dL (31.6-35.5); Mean Corpuscular Hemoglobin 29.8 pg (28.0-33.3); Mean Corpuscular Volume 98.3 fL (83.0-100.0); Monocytes # 0.7 K/mcL (0.0-1.3); Monocytes % 9.6 %; Neutrophils # 5.2 K/mcL (1.6-8.9); Platelet Count 438 K/mcL (140-400); Red Blood Count 2.92 M/mcL (3.82-4.97); Red Cell Distribution Width 15.9 % (11.5-14.5)
[2018-01-02 11:49] LABS: INR 1.9; Prothrombin Time 21.8 Seconds (9.4-12.1)
--- NOTE | 2018-01-02 17:00 | Internal Med Progress Note ---
Date of Encounter: 01/02/18 Time of Encounter: 16:50 - Assessment and plan (1) Status post total knee replacement, left Current Visit: No Status: Acute Assessment and plan: December 23. Continue therapy. Continue Lovenox until Coumadin dose therapeutic. December 24. Check pro time in a.m. December 26. INR subtherapeutic at 1.4. Increase Coumadin dose to 7 mg daily and continue to monitor INR. December 28. Check INR and other labs today. Venous ultrasound will be done later today to evaluate for DVT. December 29. INR was 1.5 yesterday. Continue present dose Coumadin and recheck in a.m. Venous ultrasound showed no DVT. December 30. INR was 1.7 today. Continue Coumadin and continue to monitor INR. I told her I felt the left calf pain might be in her hamstring musculature and continued therapy will hopefully lessen the discomfort. January 02. INR was 1.9 today. Increase Coumadin to 7.5 mg daily (2) Anemia Current Visit: Yes Status: Acute Assessment and plan: December 23. Recheck CBC today. December 24. Hemoglobin improved to 8.9 yesterday. Recheck labs in a.m. December 26. Hemoglobin decreased to 8.7. Check anemia testing in a.m. December 28. Anemia testing showed iron 39, transferrin saturation 12%, transferrin 237, ferritin 69, B12 166, and folate 6.7. She will receive a B12 injection and start oral ferrous sulfate and ascorbic acid tomorrow. December 29. Hemoglobin decreased slightly to 7.9 yesterday. BUN has risen to 24. I told her I suspected she might have a very slow upper GI source of blood loss. Continue to monitor. December 30. Hemoglobin further decreased slightly to 7.6. BUN has decreased to 19 and creatinine decreased to 0.54. Continue to monitor. January 02. Hemoglobin increased to 8.7. Continue ferrous sulfate and ascorbic acid. Start oral B12 supplement. Qualifiers: Anemia type: unspecified type Qualified Code(s): D64.9 - Anemia, unspecified (3) Cardiomyopathy Current Visit: No Status: Acute Assessment and plan: December 23. Check Bn peptide December 24. BN peptide normal at 17. Continue Lasix and Lopressor. December 30. BN peptide has risen to 111. Continue Lasix and Lopressor and continue to monitor. January 02. BN peptide normal at 50. Continue Lasix and Lopressor. Qualifiers: Cardiomyopathy type: unspecified Qualified Code(s): I42.9 - Cardiomyopathy, unspecified (4) CHF (congestive heart failure) Current Visit: No Status: Chronic Assessment and plan: December 23. As above Qualifiers: Qualified Code(s): I50.23 - Acute on chronic systolic (congestive) heart failure (5) History of pulmonary embolism Current Visit: No Status: Acute Assessment and plan: December 23. Monitor INR December 24. Check INR in a.m. Continue Coumadin and Lovenox. December 26. INR 1.4. Increase Coumadin to 7 mg daily December 28. Check INR today. December 29. Recheck INR in a.m. December 30. INR higher as per above. Continue Coumadin and Lovenox for now. January 02. Increase Coumadin as per above. (6) HTN (hypertension) Current Visit: No Status: Chronic Assessment and plan: December 23. Hold metoprol today since borderline hypotensive. December 24. Borderline hypotensive. Decrease metoprolol to 25 mg twice a day. December 28. Continue present dose metoprolol. Qualifiers: Hypertension type: essential hypertension Qualified Code(s): I10 - Essential (primary) hypertension - Subjective Interval history: December 23. She has no new complaints. She states the Duragesic patch has lessened but not resolved her pain December 24. She has no new complaints. She reports her pain has not significantly changed since yesterday. She reports she is taking Reglan for migraine headache treatment rather than for nausea. December 26. She has no new complaints and states her pain is minimally changed. December 28. She has no new complaints. She saw the orthopedist staff today. There was concern she might have a leg DVT she has history of DVTs and complained of significant leg pain. Venous ultrasound was ordered and will be done later today. She was ordered topical Voltaren to alternate with topical BenGay. December 29. She has no new complaints. She states her pain is very gradually lessening. December 30. She reports discomfort in her posterior thighs (more left side than right side) when sitting in a chair with her legs extended. January 02. She has no new complaints. - Constitutional Vitals: Temp Pulse Resp BP Pulse Ox 97.6 F 99 16 98/56 95 01/02/18 06:26 01/02/18 10:47 01/02/18 06:26 01/02/18 10:47 01/02/18 10:07 Exam: She is resting comfortably in bed and appears in no acute distress. Her affect is bright and cheerful. I reviewed her medications. I discussed pertinent lab results with her. Internal Medicine: Result - Labs CBC & Chem 7: 01/02/18 11:22 12/30/17 06:10 Labs: Short CBC 01/02/18 Range/Units 11:22 WBC 7.6 (4.3-11.1) K/mcL Hgb 8.7 L (11.5-15.4) g/dL Hct 28.7 L (35.3-44.9) % Plt Count 438 H (140-400) K/mcL Neutrophils # 5.2 (1.6-8.9) K/mcL - ABG Interpretation ABG results: PT/INR, D-dimer PT 21.8 Seconds (9.4-12.1) H 01/02/18 11:22 Consult Discharge Plan - Plan Referrals: Aylin Smith MD [Primary Care Provider] - 1 week
[2018-01-02] MEDS: *HR* Warfarin 5 MG TABLET PO SCH (17:34)
[2018-01-02] MEDS: Loratadine 10 MG TABLET PO SCH (21:38)
[2018-01-02] MEDS: traZODone 50 MG TABLET PO PRN (21:39)
[2018-01-02] MEDS: *HR* LORazepam 0.5 MG TABLET PO PRN (21:39)
[2018-01-03] MEDS: Acetaminophen 325 MG TABLET PO SCH ×4 (00:59→16:47)
[2018-01-03] MEDS: *HR* OxyCODONE Immed Rel 5 MG TABLET PO PRN ×4 (02:51→21:54)
[2018-01-03] MEDS: *HR* Enoxaparin 30 MG/0.3 ML SYRINGE SQ SCH ×2 (06:33→16:48)
[2018-01-03] MEDS: Ascorbic Acid 500 MG TABLET PO SCH (06:33)
[2018-01-03] MEDS: VOLTAREN 1% GEL TP SCH ×3 (06:34→16:48)
[2018-01-03] MEDS: Gabapentin 300 MG CAPSULE PO SCH ×3 (09:18→20:22)
[2018-01-03] MEDS: Cyanocobalamin (B-12) 1,000 MCG TABLET PO SCH (09:20)
[2018-01-03] MEDS: Topiramate 100 MG TABLET PO SCH ×2 (09:21→20:22)
[2018-01-03] MEDS: traMADol 50 MG TABLET PO SCH ×4 (09:21→20:23)
[2018-01-03] MEDS: Furosemide 20 MG TABLET PO SCH (09:21)
[2018-01-03] MEDS: Methyl Salicylate/Menthol 28 GM TUBE TP SCH ×2 (09:22→20:24)
[2018-01-03] MEDS: *HR* Warfarin 5 MG TABLET PO SCH (16:47)
[2018-01-03] MEDS: *HR* FentaNYL PATCH 12 MCG PATCH TD SCH (16:48)
[2018-01-03] MEDS: MOM Conc 10 ML UD.LIQ PO SCH (16:48)
[2018-01-03] MEDS: Loratadine 10 MG TABLET PO SCH (20:22)
[2018-01-03] MEDS: traZODone 50 MG TABLET PO PRN (20:22)
[2018-01-03] MEDS: *HR* LORazepam 0.5 MG TABLET PO PRN (20:23)
[2018-01-04] MEDS: Acetaminophen 325 MG TABLET PO SCH ×5 (00:59→17:58)
[2018-01-04] MEDS: *HR* OxyCODONE Immed Rel 5 MG TABLET PO PRN ×3 (02:47→17:57)
[2018-01-04] MEDS: *HR* Enoxaparin 30 MG/0.3 ML SYRINGE SQ SCH ×2 (06:48→17:54)
[2018-01-04] MEDS: Ascorbic Acid 500 MG TABLET PO SCH (06:48)
[2018-01-04] MEDS: VOLTAREN 1% GEL TP SCH ×3 (06:48→17:59)
[2018-01-04] MEDS: Cyanocobalamin (B-12) 1,000 MCG TABLET PO SCH (07:27)
[2018-01-04] MEDS: Furosemide 20 MG TABLET PO SCH (07:28)
[2018-01-04] MEDS: Topiramate 100 MG TABLET PO SCH ×2 (07:29→21:00)
[2018-01-04] MEDS: Gabapentin 300 MG CAPSULE PO SCH ×4 (07:30→21:00)
[2018-01-04] MEDS: traMADol 50 MG TABLET PO SCH ×4 (10:16→21:00)
[2018-01-04] MEDS: Methyl Salicylate/Menthol 28 GM TUBE TP SCH ×2 (10:17→18:57)
--- NOTE | 2018-01-04 15:25 | Internal Med Progress Note ---
Date of Encounter: 01/04/18 Time of Encounter: 15:15 - Assessment and plan (1) Status post total knee replacement, left Current Visit: No Status: Acute Assessment and plan: December 23. Continue therapy. Continue Lovenox until Coumadin dose therapeutic. December 24. Check pro time in a.m. December 26. INR subtherapeutic at 1.4. Increase Coumadin dose to 7 mg daily and continue to monitor INR. December 28. Check INR and other labs today. Venous ultrasound will be done later today to evaluate for DVT. December 29. INR was 1.5 yesterday. Continue present dose Coumadin and recheck in a.m. Venous ultrasound showed no DVT. December 30. INR was 1.7 today. Continue Coumadin and continue to monitor INR. I told her I felt the left calf pain might be in her hamstring musculature and continued therapy will hopefully lessen the discomfort. January 02. INR was 1.9 today. Increase Coumadin to 7.5 mg daily January 04. Recheck labs in a.m. (2) Anemia Current Visit: Yes Status: Acute Assessment and plan: December 23. Recheck CBC today. December 24. Hemoglobin improved to 8.9 yesterday. Recheck labs in a.m. December 26. Hemoglobin decreased to 8.7. Check anemia testing in a.m. December 28. Anemia testing showed iron 39, transferrin saturation 12%, transferrin 237, ferritin 69, B12 166, and folate 6.7. She will receive a B12 injection and start oral ferrous sulfate and ascorbic acid tomorrow. December 29. Hemoglobin decreased slightly to 7.9 yesterday. BUN has risen to 24. I told her I suspected she might have a very slow upper GI source of blood loss. Continue to monitor. December 30. Hemoglobin further decreased slightly to 7.6. BUN has decreased to 19 and creatinine decreased to 0.54. Continue to monitor. January 02. Hemoglobin increased to 8.7. Continue ferrous sulfate and ascorbic acid. Start oral B12 supplement. Qualifiers: Anemia type: unspecified type Qualified Code(s): D64.9 - Anemia, unspecified (3) Cardiomyopathy Current Visit: No Status: Acute Assessment and plan: December 23. Check Bn peptide December 24. BN peptide normal at 17. Continue Lasix and Lopressor. December 30. BN peptide has risen to 111. Continue Lasix and Lopressor and continue to monitor. January 02. BN peptide normal at 50. Continue Lasix and Lopressor. Qualifiers: Cardiomyopathy type: unspecified Qualified Code(s): I42.9 - Cardiomyopathy, unspecified (4) CHF (congestive heart failure) Current Visit: No Status: Chronic Assessment and plan: December 23. As above Qualifiers: Qualified Code(s): I50.23 - Acute on chronic systolic (congestive) heart failure (5) History of pulmonary embolism Current Visit: No Status: Acute Assessment and plan: December 23. Monitor INR December 24. Check INR in a.m. Continue Coumadin and Lovenox. December 26. INR 1.4. Increase Coumadin to 7 mg daily December 28. Check INR today. December 29. Recheck INR in a.m. December 30. INR higher as per above. Continue Coumadin and Lovenox for now. January 02. Increase Coumadin as per above. January 04. Recheck labs in a.m. (6) HTN (hypertension) Current Visit: No Status: Chronic Assessment and plan: December 23. Hold metoprol today since borderline hypotensive. December 24. Borderline hypotensive. Decrease metoprolol to 25 mg twice a day. December 28. Continue present dose metoprolol. Qualifiers: Hypertension type: essential hypertension Qualified Code(s): I10 - Pawel ial (primary) hypertension - Subjective Interval history: December 23. She has no new complaints. She states the Duragesic patch has lessened but not resolved her pain December 24. She has no new complaints. She reports her pain has not significantly changed since yesterday. She reports she is taking Reglan for migraine headache treatment rather than for nausea. December 26. She has no new complaints and states her pain is minimally changed. December 28. She has no new complaints. She saw the orthopedist staff today. There was concern she might have a leg DVT she has history of DVTs and complained of significant leg pain. Venous ultrasound was ordered and will be done later today. She was ordered topical Voltaren to alternate with topical BenGay. December 29. She has no new complaints. She states her pain is very gradually lessening. December 30. She reports discomfort in her posterior thighs (more left side than right side) when sitting in a chair with her legs extended. January 02. She has no new complaints. January 04. She is frustrated that she was unable be seen at the orthopedist office today at [place] because she arrived by transport 1 minute after scheduled appointment time. Her claudio were not removed and she is reluctant to consider discharge home with claudio in place - Constitutional Vitals: Temp Pulse Resp BP Pulse Ox 97.7 F 84 18 109/68 93 01/04/18 06:59 01/04/18 06:59 01/04/18 06:59 01/04/18 06:59 01/04/18 06:59 Exam: She is resting comfortably in bed and appears in no acute distress. Her affect is overall cheerful. Her left leg shows 0 to trace pitting edema in the lower anterior vaughn. There is no edema in the right leg. I reviewed her medications and lab results. Internal Medicine: Result - Labs CBC & Chem 7: 01/02/18 11:22 12/30/17 06:10 - ABG Interpretation ABG results: PT/INR, D-dimer PT 21.8 Seconds (9.4-12.1) H 01/02/18 11:22 Consult Discharge Plan - Plan Referrals: Aylin Smith MD [Primary Care Provider] - 1 week
[2018-01-04] MEDS: *HR* Warfarin 5 MG TABLET PO SCH (17:58)
[2018-01-04] MEDS: *HR* LORazepam 0.5 MG TABLET PO PRN (20:59)
[2018-01-04] MEDS: traZODone 50 MG TABLET PO PRN (20:59)
[2018-01-04] MEDS: Loratadine 10 MG TABLET PO SCH (21:00)
[2018-01-05] MEDS: Acetaminophen 325 MG TABLET PO SCH ×4 (00:59→17:10)
[2018-01-05] MEDS: *HR* OxyCODONE Immed Rel 5 MG TABLET PO PRN ×5 (05:13→22:04)
[2018-01-05] MEDS: Ascorbic Acid 500 MG TABLET PO SCH (06:45)
[2018-01-05] MEDS: VOLTAREN 1% GEL TP SCH ×3 (06:46→17:13)
[2018-01-05] MEDS: *HR* Enoxaparin 30 MG/0.3 ML SYRINGE SQ SCH ×2 (06:46→17:13)
[2018-01-05 07:34] LABS: Basophils # 0.1 K/mcL (0.0-0.2); Basophils % 0.9 %; Eosinophils # 0.2 K/mcL (0.0-0.6); Eosinophils % 2.9 %; Hematocrit 28.5 % (35.3-44.9); Hemoglobin 8.7 g/dL (11.5-15.4); Lymphocytes # 1.5 K/mcL (0.6-4.6); Lymphocytes % 21.9 %; Mean Corpuscular HGB Conc 30.5 g/dL (31.6-35.5); Mean Corpuscular Hemoglobin 29.6 pg (28.0-33.3); Mean Corpuscular Volume 96.9 fL (83.0-100.0); Mean Platelet Volume 8.2 fL (9.4-12.4); Monocytes # 0.8 K/mcL (0.0-1.3); Neutrophils # 4.2 K/mcL (1.6-8.9); Platelet Count 372 K/mcL (140-400); Red Blood Count 2.94 M/mcL (3.82-4.97); Red Cell Distribution Width 15.9 % (11.5-14.5); Segmented Neutrophils % 61.3 %
[2018-01-05 07:36] LABS: INR 1.3; Prothrombin Time 14.3 Seconds (9.4-12.1)
[2018-01-05] MEDS: Topiramate 100 MG TABLET PO SCH ×2 (09:39→22:02)
[2018-01-05] MEDS: traMADol 50 MG TABLET PO SCH ×4 (09:39→22:03)
[2018-01-05] MEDS: Gabapentin 300 MG CAPSULE PO SCH ×3 (09:39→22:01)
[2018-01-05] MEDS: Cyanocobalamin (B-12) 1,000 MCG TABLET PO SCH (09:40)
[2018-01-05] MEDS: Furosemide 20 MG TABLET PO SCH (09:40)
[2018-01-05] MEDS: Methyl Salicylate/Menthol 28 GM TUBE TP SCH ×2 (09:41→22:15)
[2018-01-05] MEDS: *HR* Warfarin 5 MG TABLET PO SCH (17:10)
[2018-01-05] MEDS: MOM Conc 10 ML UD.LIQ PO SCH (17:11)
[2018-01-05] MEDS: traZODone 50 MG TABLET PO PRN (22:02)
[2018-01-05] MEDS: *HR* LORazepam 0.5 MG TABLET PO PRN (22:03)
[2018-01-05] MEDS: Loratadine 10 MG TABLET PO SCH (22:03)
[2018-01-06] MEDS: Acetaminophen 325 MG TABLET PO SCH ×3 (00:08→13:48)
[2018-01-06 06:18] VITALS: BP 103/69
[2018-01-06] MEDS: Ascorbic Acid 500 MG TABLET PO SCH (06:25)
[2018-01-06] MEDS: *HR* OxyCODONE Immed Rel 5 MG TABLET PO PRN ×3 (06:26→15:32)
[2018-01-06] MEDS: VOLTAREN 1% GEL TP SCH ×2 (06:27→13:29)
[2018-01-06] MEDS: *HR* Enoxaparin 30 MG/0.3 ML SYRINGE SQ SCH (06:27)
[2018-01-06] MEDS: Gabapentin 300 MG CAPSULE PO SCH ×2 (08:22→13:49)
[2018-01-06] MEDS: Furosemide 20 MG TABLET PO SCH (08:22)
[2018-01-06] MEDS: Cyanocobalamin (B-12) 1,000 MCG TABLET PO SCH (08:22)
[2018-01-06] MEDS: Topiramate 100 MG TABLET PO SCH (08:23)
[2018-01-06] MEDS: Methyl Salicylate/Menthol 28 GM TUBE TP SCH (08:24)
[2018-01-06] MEDS: traMADol 50 MG TABLET PO SCH ×2 (08:31→13:48)
[2018-01-06] MEDS ORDERED: *HR* Warfarin 5 MG TABLET PO ONE (13:39)
--- NOTE | 2018-01-06 13:45 | Discharge Summary ---
Date of Encounter: 01/06/18 Time of Encounter: 13:25 - Discharge Diagnosis (1) Status post total knee replacement, left Priority: Primary Status: Acute (2) Anemia Priority: Secondary Status: Acute Qualifiers: Anemia type: unspecified type Qualified Code(s): D64.9 - Anemia, unspecified (3) Cardiomyopathy Priority: Secondary Status: Chronic Qualifiers: Cardiomyopathy type: unspecified Qualified Code(s): I42.9 - Cardiomyopathy, unspecified (4) CHF (congestive heart failure) Priority: Secondary Status: Chronic Qualifiers: Qualified Code(s): I50.23 - Acute on chronic systolic (congestive) heart failure (5) History of pulmonary embolism Priority: Secondary Status: Acute (6) HTN (hypertension) Priority: Secondary Status: Chronic Qualifiers: Hypertension type: essential hypertension Qualified Code(s): I10 - Essential (primary) hypertension Hospital course: Ms. Cuenca is a 57 year old female who underwent elective left total knee replacement at [facility] on 12/19/2017. Her postoperative course was unremarkable and she was discharged to [facility] swing bed for rehabilitation therapy prior to returning home. Initial orders were written by the discharging physician at [facility]. I saw her on December 22 and performed the swing bed history and physical. She had physical therapy and occupational therapy evaluations with ongoing interventions. She was given Duragesic patch and oral oxycodone as needed for pain. She made satisfactory progress but complained of significant ongoing pain in her left leg. A venous Doppler study was ordered by orthopedic staff which showed no evidence of DVT on 12/28/2017. She will continue therapy through home health services after discharge. Coumadin dose was increased to 7.5 mg daily. Hemoglobin was stable at 8.7 on January 05. Her PCP can continue to monitor. BN peptide was stable at 50 on January 02. Anemia testing showed iron 39, transferrin saturation 12%, transferrin 237, ferritin 69, B12 166, and folate 6.7. She was started on ferrous sulfate with ascorbic acid which be continued at discharge. She was given an injection of B12 and will continue oral supplement at discharge. Her PCP can monitor. She had a scheduled follow-up appointment at her orthopedist on January 04. I was told transport arrived 1 minute late and she was not seen by the orthopedic staff. A return appointment was scheduled for January 08. The patient appealed discharge to her insurance company. Her appeal was denied effective January 04. On January 06 she was discharged home. She will follow with her PCP and/or orthopedist within 1 week. - Time Spent with Patient Total time spent providing and/or coordinating discharge services: - Discharge Medications Prescriptions: OxyCODONE Immed Rel [Roxicodone 5 MG] 5 mg PO Q4HR PRN 2 Days #12 tablet PRN Reason: Pain Ascorbic Acid [Vitamin C] 500 mg PO 0630 #30 tablet Cyanocobalamin (B-12) [Vitamin B12] 1,000 mcg PO DAILY #30 tablet Ferrous Sulfate 325 mg PO 0630 #30 tablet Lidocaine Patch [Lidoderm 5% patch] 1 each TP DAILY #3 adh..patch Warfarin Sodium 7.5 mg PO DAILY #45 tablet Home Medications: Cyclobenzaprine [Flexeril] 10 mg PO TID 04/18/17 [History] Duloxetine HCl [Cymbalta] 60 mg PO BID 04/18/17 [History] Furosemide [Lasix] 20 mg PO DAILY 04/18/17 [History] Gabapentin [Neurontin] 300 mg PO TID 04/18/17 [History] Metoprolol [Lopressor] 50 mg PO BID 04/18/17 [History] Pantoprazole Sodium [Protonix] 40 mg PO DAILY 04/18/17 [History] Topiramate [Topamax] 100 mg PO BID 04/18/17 [History] Buspirone HCl [Buspar] 10 mg PO HS 10/06/17 [History] Cetirizine HCl [Zyrtec] 10 mg PO HS 10/06/17 [History] Metoclopramide HCl 5 mg PO QID 10/06/17 [History] Acetaminophen [Extra Strength Non-Aspirin] 1,000 mg PO Q6H PRN 12/19/17 [History] Buspirone HCl [Buspar] 5 mg PO DAILY 12/19/17 [History] Enoxaparin [Lovenox] 30 mg SQ BID 12/19/17 [History] Nystatin Cream [Mycostatin Cream] 1 appl TP BID PRN 12/19/17 [History] Nystatin POWDER [Nystop] 1 appl TP BID PRN 12/19/17 [History] traZODone [TraZODone] 50 mg PO HS PRN 12/19/17 [History] Docusate Sodium [Colace] 100 mg PO DAILY #7 capsule 12/21/17 [Rx] Lidocaine Patch [Lidoderm 5% patch] 1 each TP DAILY adh..patch 12/21/17 [Rx] Ascorbic Acid [Vitamin C] 500 mg PO 0630 #30 tablet 01/06/18 [Rx] Cyanocobalamin (B-12) [Vitamin B12] 1,000 mcg PO DAILY #30 tablet 01/06/18 [Rx] Ferrous Sulfate 325 mg PO 0630 #30 tablet 01/06/18 [Rx] Lidocaine Patch [Lidoderm 5% patch] 1 each TP DAILY #3 adh..patch 01/06/18 [Rx] OxyCODONE Immed Rel [Roxicodone 5 MG] 5 mg PO Q4HR PRN 2 Days #12 tablet 01/06/18 [Rx] Warfarin Sodium 7.5 mg PO DAILY #45 tablet 01/06/18 [Rx] Allergies/Adverse Reactions: Allergy/AdvReac Type Severity Reaction Status Date / Time ibuprofen AdvReac See Verified 12/14/17 12:06 Comments Date of admission: 12/21/17 19:58 Primary care physician: Aylin Smith Consults: 12/21/17 18:48 Consult to Occupational Therapy [CONS] Routine Comment: eval, develop, implement POC Reason for Consult: eval, develop, implement POC Does patient have active BEDREST order?: No Is patient medically & hemodynamically stable?: Yes Consult to Physical Therapy [CONS] Routine Comment: eval, develop, implement POC Reason for Consult: eval, develop, implement POC Does patient have active BEDREST order?: No Is patient medically & hemodynamically stable?: Yes 12/21/17 21:15 Consult to Stem Roller Operator [CONS] Routine Reason for SW Consult: Discharge Planning - Constitutional Vitals: Temp Pulse Resp BP Pulse Ox 98.0 F 90 16 103/69 97 01/06/18 06:17 01/06/18 06:17 01/06/18 06:17 01/06/18 06:17 01/06/18 06:17 - Patient Status Disposition: Home Health Service - Discharge Instructions Follow Up With: Aylin Smith MD [Primary Care Provider] - 1 week - Diet and Activity Activity: as per physical therapy Diet: advance to your usual diet
--- NOTE | 2018-01-06 13:53 | Physician Discharge Referral ---
Home Health/Hosp Referral Info Transfer to: Home Health Attending Provider: Uvaldo Provider in Charge Post Discharge: PCP Mikael) - Diagnosis (1) Status post total knee replacement, left Priority: Primary Status: Acute (2) Anemia Priority: Secondary Status: Acute (3) Cardiomyopathy Priority: Secondary Status: Chronic (4) CHF (congestive heart failure) Priority: Secondary Status: Chronic (5) History of pulmonary embolism Priority: Secondary Status: Acute (6) HTN (hypertension) Priority: Secondary Status: Chronic - Respiratory Orders Smoking Cessation: Smoking cessation has been advised. For more information, call the [place] Tobacco Quit Line at 9-508-IAGT-NOW. - Diet/Nutrition Diet/Nutrition Orders: Regular - Activity Activity Orders: Ambulate - Services Needed Following services are medically necessary services: Nursing, Home Health Aide, Physical Therapy, Occupational Therapy - Transfer Medications Prescriptions: OxyCODONE Immed Rel [Roxicodone 5 MG] 5 mg PO Q4HR PRN 2 Days #12 tablet PRN Reason: Pain Ascorbic Acid [Vitamin C] 500 mg PO 0630 #30 tablet Cyanocobalamin (B-12) [Vitamin B12] 1,000 mcg PO DAILY #30 tablet Ferrous Sulfate 325 mg PO 0630 #30 tablet Lidocaine Patch [Lidoderm 5% patch] 1 each TP DAILY #3 adh..patch Warfarin Sodium 7.5 mg PO DAILY #45 tablet Home Medications: Cyclobenzaprine [Flexeril] 10 mg PO TID 04/18/17 [History] Duloxetine HCl [Cymbalta] 60 mg PO BID 04/18/17 [History] Furosemide [Lasix] 20 mg PO DAILY 04/18/17 [History] Gabapentin [Neurontin] 300 mg PO TID 04/18/17 [History] Metoprolol [Lopressor] 50 mg PO BID 04/18/17 [History] Pantoprazole Sodium [Protonix] 40 mg PO DAILY 04/18/17 [History] Topiramate [Topamax] 100 mg PO BID 04/18/17 [History] Buspirone HCl [Buspar] 10 mg PO HS 10/06/17 [History] Cetirizine HCl [Zyrtec] 10 mg PO HS 10/06/17 [History] Metoclopramide HCl 5 mg PO QID 10/06/17 [History] Acetaminophen [Extra Strength Non-Aspirin] 1,000 mg PO Q6H PRN 12/19/17 [History] Buspirone HCl [Buspar] 5 mg PO DAILY 12/19/17 [History] Enoxaparin [Lovenox] 30 mg SQ BID 12/19/17 [History] Nystatin Cream [Mycostatin Cream] 1 appl TP BID PRN 12/19/17 [History] Nystatin POWDER [Nystop] 1 appl TP BID PRN 12/19/17 [History] traZODone [TraZODone] 50 mg PO HS PRN 12/19/17 [History] Docusate Sodium [Colace] 100 mg PO DAILY #7 capsule 12/21/17 [Rx] Lidocaine Patch [Lidoderm 5% patch] 1 each TP DAILY adh..patch 12/21/17 [Rx] Ascorbic Acid [Vitamin C] 500 mg PO 0630 #30 tablet 01/06/18 [Rx] Cyanocobalamin (B-12) [Vitamin B12] 1,000 mcg PO DAILY #30 tablet 01/06/18 [Rx] Ferrous Sulfate 325 mg PO 0630 #30 tablet 01/06/18 [Rx] Lidocaine Patch [Lidoderm 5% patch] 1 each TP DAILY #3 adh..patch 01/06/18 [Rx] OxyCODONE Immed Rel [Roxicodone 5 MG] 5 mg PO Q4HR PRN 2 Days #12 tablet 01/06/18 [Rx] Warfarin Sodium 7.5 mg PO DAILY #45 tablet 01/06/18 [Rx] Allergies/Adverse Reactions: Allergy/AdvReac Type Severity Reaction Status Date / Time ibuprofen AdvReac See Verified 12/14/17 12:06 Comments Certification: Further, I certify that my clinical findings support that this patient is homebound (i.e. absences from home require considerable and taxing effort and are for medical reasons or [facility] services or infrequently or short duration when for other reasons) because: Homebound Reason: Leaving home requires considerable and taxing effort due to condition (Impaired ambulation secondary to left knee surgery) Attestation: My signature below is to certify that this patient is under my care and that I, or nurse practitioner, or a physician's civil engineering assistant working with me, has a [id number] encounter with this patient.
[2018-01-06] MEDS ORDERED: *HR* FentaNYL PATCH 12 MCG PATCH TD ONE (15:15)
== END 2018-01-06 15:51 | disposition home health service (06) | DRG 559 ==
LOC: INPPIK 19:58
PROVIDERS: ADMIT Internal Medicine; ATTEND Internal Medicine

== ENCOUNTER 2018-05-18 18:38 | Inpatient (IN) ==
[2018-05-18] MEDS ORDERED: TRIAMCINOLONE ACETONIDE 0.05% TP PRN (19:02)
[2018-05-18] MEDS ORDERED: Nystatin POWDER 30 GM BOTTLE TP PRN (19:02)
[2018-05-18] MEDS ORDERED: Nystatin Cream 15 GM TUBE TP PRN (19:02)
[2018-05-18] MEDS: Topiramate 100 MG TABLET PO SCH (22:24)
[2018-05-18] MEDS: traMADol 50 MG TABLET PO SCH (22:24)
[2018-05-18] MEDS: Gabapentin 300 MG CAPSULE PO SCH (22:25)
[2018-05-18] MEDS: Loratadine 10 MG TABLET PO SCH (22:25)
[2018-05-18] MEDS: *HR* OxyCODONE Immed Rel 5 MG TABLET PO PRN (23:17)
[2018-05-19] MEDS: *HR* Enoxaparin 30 MG/0.3 ML SYRINGE SQ SCH ×2 (05:11→17:57)
[2018-05-19] MEDS: *HR* OxyCODONE Immed Rel 5 MG TABLET PO PRN ×3 (05:11→17:56)
[2018-05-19 05:43] LABS: Basophils # 0.1 K/mcL (0.0-0.2); Eosinophils # 0.4 K/mcL (0.0-0.6); Hematocrit 31.3 % (35.3-44.9); Hemoglobin 9.7 g/dL (11.5-15.4); Immature Granulocytes % 1.4 % (0-4); Lymphocytes # 1.9 K/mcL (0.6-4.6); Lymphocytes % 22.2 %; Mean Corpuscular Hemoglobin 28.3 pg (28.0-33.3); Mean Corpuscular Volume 91.3 fL (83.0-100.0); Mean Platelet Volume 9.4 fL (9.4-12.4); Monocytes # 0.9 K/mcL (0.0-1.3); Monocytes % 10.5 %; Nucleated Red Blood Cells 0.5 /100 WBC (0); Platelet Count 256 K/mcL (140-400); Red Blood Count 3.43 M/mcL (3.82-4.97); Red Cell Distribution Width 17.2 % (11.5-14.5); Segmented Neutrophils % 59.9 %
[2018-05-19 05:48] LABS: INR 1.2; Prothrombin Time 13.9 Seconds (9.4-12.1)
[2018-05-19 05:50] LABS: Activated Partial Thrombo Time 32.1 Seconds (26.0-36.0)
[2018-05-19 06:07] LABS: BUN/Creatinine Ratio 32 (6-26); Blood Urea Nitrogen 18 mg/dL (6-20); Calcium 9.1 mg/dL (8.6-10.3); Carbon Dioxide 23 mEq/L (23-29); Chloride 106 mEq/L (98-107); Glucose 102 mg/dL (70-105); Osmolality,Calculated 288 (280-300); Sodium 138 mEq/L (136-145); eGFR For Non-African Americans > 60 (> 60)
[2018-05-19] MEDS: Furosemide 20 MG TABLET PO SCH (08:00)
[2018-05-19] MEDS: traMADol 50 MG TABLET PO SCH ×3 (08:01→17:54)
[2018-05-19] MEDS: Topiramate 100 MG TABLET PO SCH ×2 (08:01→20:15)
[2018-05-19] MEDS: Gabapentin 300 MG CAPSULE PO SCH ×3 (08:01→20:15)
[2018-05-19] MEDS ORDERED: [UNRECOGNIZED DRUG - OTHER] PO SCH (09:00)
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
[2018-05-19] MEDS: Iron Polysaccharide Complex 150 MG CAPSULE PO SCH (14:39)
[2018-05-19] MEDS: Acetaminophen 325 MG TABLET PO SCH ×2 (14:40→17:51)
[2018-05-19] MEDS: *HR* FentaNYL PATCH 12 MCG PATCH TD SCH (14:40)
[2018-05-19] MEDS: *HR* Warfarin 5 MG TABLET PO SCH (17:59)
[2018-05-19] MEDS: Loratadine 10 MG TABLET PO SCH (20:15)
[2018-05-20] MEDS: Acetaminophen 325 MG TABLET PO SCH ×4 (00:26→18:33)
[2018-05-20] MEDS: traMADol 50 MG TABLET PO SCH ×4 (00:27→18:33)
[2018-05-20] MEDS: *HR* OxyCODONE Immed Rel 5 MG TABLET PO PRN ×4 (00:30→18:33)
[2018-05-20 05:47] LABS: Basophils # 0.1 K/mcL (0.0-0.2); Basophils % 0.8 %; Eosinophils # 0.5 K/mcL (0.0-0.6); Eosinophils % 6.1 %; Hematocrit 30.9 % (35.3-44.9); Hemoglobin 9.9 g/dL (11.5-15.4); Immature Granulocytes % 1.1 % (0-4); Lymphocytes # 1.7 K/mcL (0.6-4.6); Lymphocytes % 23.2 %; Mean Corpuscular Hemoglobin 28.7 pg (28.0-33.3); Mean Corpuscular Volume 89.6 fL (83.0-100.0); Monocytes # 0.8 K/mcL (0.0-1.3); Monocytes % 10.5 %; Neutrophils # 4.3 K/mcL (1.6-8.9); Platelet Count 314 K/mcL (140-400); Red Blood Count 3.45 M/mcL (3.82-4.97); Red Cell Distribution Width 17.1 % (11.5-14.5); Segmented Neutrophils % 58.3 %
[2018-05-20 06:01] LABS: INR 1.4; Prothrombin Time 16.1 Seconds (9.4-12.1)
[2018-05-20] MEDS: *HR* Enoxaparin 30 MG/0.3 ML SYRINGE SQ SCH ×2 (06:09→18:33)
[2018-05-20] MEDS: Gabapentin 300 MG CAPSULE PO SCH ×3 (07:53→20:49)
[2018-05-20] MEDS: Iron Polysaccharide Complex 150 MG CAPSULE PO SCH (07:54)
[2018-05-20] MEDS: Topiramate 100 MG TABLET PO SCH ×2 (07:54→20:49)
[2018-05-20] MEDS: Furosemide 20 MG TABLET PO SCH (07:54)
[2018-05-20 09:37] LABS: % Iron Saturation 11 % (15-50); Iron 41 mcg/dL (50-170); Transferrin 255 mg/dL (203-362)
[2018-05-20 09:53] LABS: Ferritin 47 ng/mL (10-120)
--- NOTE | 2018-05-20 15:17 | Internal Med Progress Note ---
Date of Encounter: 05/20/18 Time of Encounter: 15:10 - Assessment and plan (1) Status post total knee replacement, left Current Visit: No Status: Acute Assessment and plan: May 20. Continue PT and OT intervention. INR has increased to 1.4. Continue Lovenox. (2) Cardiomyopathy Current Visit: No Status: Chronic Assessment and plan: May 20. Continue Lasix and Lopressor. Qualifiers: Cardiomyopathy type: unspecified Qualified Code(s): I42.9 - Cardiomyopathy, unspecified (3) History of pulmonary embolism Current Visit: No Status: Acute Assessment and plan: May 20. Continue Coumadin with bridging Lovenox. (4) HTN (hypertension) Current Visit: No Status: Chronic Assessment and plan: May 20. BP stable. Continue present dose metoprolol. Qualifiers: Hypertension type: essential hypertension Qualified Code(s): I10 - Essential (primary) hypertension (5) Anemia Current Visit: No Status: Chronic Assessment and plan: May 20. Anemia testing showed iron 41, transferrin saturation 11%, transferrin 255, ferritin 47, B12 203, and folate 7.0. She will be given a B12 injection and start oral B12 supplement. Ferrous sulfate with ascorbic acid will also be started. Qualifiers: Anemia type: unspecified type Qualified Code(s): D64.9 - Anemia, unspecified (6) Low vitamin D level Current Visit: Yes Status: Acute Assessment and plan: Vitamin D level returned low at 15. Supplemental vitamin D will be ordered. - Subjective Interval history: May 20. She has no new complaints. She states her pain has lessened on the new pain management Rx. - Constitutional Vitals: Temp Pulse Resp BP Pulse Ox 97.4 F L 81 16 118/72 97 05/20/18 07:35 05/20/18 07:35 05/20/18 07:35 05/20/18 07:35 05/20/18 07:35 Exam: She is resting comfortably in bed and appears in no acute distress. Her affect is bright and cheerful. I reviewed her medications and lab results. Internal Medicine: Result - Labs CBC & Chem 7: 05/20/18 04:49 05/19/18 04:35 Labs: Short CBC 05/20/18 Range/Units 04:49 WBC 7.3 (4.3-11.1) K/mcL Hgb 9.9 L (11.5-15.4) g/dL Hct 30.9 L (35.3-44.9) % Plt Count 314 (140-400) K/mcL Neutrophils # 4.3 (1.6-8.9) K/mcL - ABG Interpretation ABG results: PT/INR, D-dimer PT 16.1 Seconds (9.4-12.1) H 05/20/18 04:49 Consult Discharge Plan - Plan Referrals: Aylin Smith MD [Primary Care Provider] - 1 week
[2018-05-20] MEDS ORDERED: Cyanocobalamin (B-12) 1,000 MCG/ML VIAL IM ONE (15:19)
[2018-05-20] MEDS: Ketoconazole Shampoo 120 ML BOTTLE TP SCH (16:09)
[2018-05-20] MEDS: Cholecalciferol (D-3) 1,000 UNIT TABLET PO SCH (16:17)
[2018-05-20] MEDS: *HR* Warfarin 5 MG TABLET PO SCH (18:33)
[2018-05-20] MEDS: Loratadine 10 MG TABLET PO SCH (20:49)
[2018-05-21] MEDS: Acetaminophen 325 MG TABLET PO SCH ×4 (00:22→18:37)
[2018-05-21] MEDS: traMADol 50 MG TABLET PO SCH ×4 (00:22→18:37)
[2018-05-21] MEDS: *HR* OxyCODONE Immed Rel 5 MG TABLET PO PRN ×4 (00:22→18:37)
[2018-05-21] MEDS: Ascorbic Acid 500 MG TABLET PO SCH (06:26)
[2018-05-21] MEDS: *HR* Enoxaparin 30 MG/0.3 ML SYRINGE SQ SCH ×2 (06:27→18:36)
[2018-05-21 06:36] LABS: INR 1.6; Prothrombin Time 18.1 Seconds (9.4-12.1)
[2018-05-21] MEDS: Cholecalciferol (D-3) 1,000 UNIT TABLET PO SCH (09:15)
[2018-05-21] MEDS: Topiramate 100 MG TABLET PO SCH ×2 (09:15→19:57)
[2018-05-21] MEDS: Gabapentin 300 MG CAPSULE PO SCH ×3 (09:15→19:57)
[2018-05-21] MEDS: Cyanocobalamin (B-12) 1,000 MCG TABLET PO SCH (09:15)
[2018-05-21] MEDS: Furosemide 20 MG TABLET PO SCH (09:15)
[2018-05-21] MEDS: *HR* Warfarin 5 MG TABLET PO SCH (18:46)
[2018-05-21] MEDS: Loratadine 10 MG TABLET PO SCH (19:57)
[2018-05-22] MEDS: traMADol 50 MG TABLET PO SCH ×4 (00:15→17:34)
[2018-05-22] MEDS: Acetaminophen 325 MG TABLET PO SCH ×4 (00:15→17:34)
[2018-05-22] MEDS: *HR* OxyCODONE Immed Rel 5 MG TABLET PO PRN ×4 (00:15→17:33)
[2018-05-22] MEDS: *HR* Enoxaparin 30 MG/0.3 ML SYRINGE SQ SCH ×2 (06:15→17:34)
[2018-05-22] MEDS: Ascorbic Acid 500 MG TABLET PO SCH (06:15)
[2018-05-22] MEDS: Gabapentin 300 MG CAPSULE PO SCH ×3 (10:25→21:20)
[2018-05-22] MEDS: Cholecalciferol (D-3) 1,000 UNIT TABLET PO SCH (10:26)
[2018-05-22] MEDS: Topiramate 100 MG TABLET PO SCH ×2 (10:26→21:21)
[2018-05-22] MEDS: Furosemide 20 MG TABLET PO SCH (10:26)
[2018-05-22] MEDS: Cyanocobalamin (B-12) 1,000 MCG TABLET PO SCH (10:26)
[2018-05-22] MEDS: *HR* FentaNYL PATCH 12 MCG PATCH TD SCH (12:09)
[2018-05-22] MEDS: Ketoconazole Shampoo 120 ML BOTTLE TP SCH (12:20)
[2018-05-22] MEDS: *HR* Warfarin 5 MG TABLET PO SCH (17:36)
[2018-05-22] MEDS: Loratadine 10 MG TABLET PO SCH (21:21)
[2018-05-23] MEDS: traMADol 50 MG TABLET PO SCH ×4 (00:47→17:48)
[2018-05-23] MEDS: Acetaminophen 325 MG TABLET PO SCH ×4 (00:47→17:49)
[2018-05-23] MEDS: *HR* OxyCODONE Immed Rel 5 MG TABLET PO PRN ×4 (00:47→17:49)
[2018-05-23] MEDS: *HR* Enoxaparin 30 MG/0.3 ML SYRINGE SQ SCH ×2 (05:53→17:49)
[2018-05-23] MEDS: Ascorbic Acid 500 MG TABLET PO SCH (05:53)
[2018-05-23 06:06] LABS: INR 1.7; Prothrombin Time 19.4 Seconds (9.4-12.1)
[2018-05-23] MEDS: Gabapentin 300 MG CAPSULE PO SCH ×2 (09:43→16:08)
[2018-05-23] MEDS: Cholecalciferol (D-3) 1,000 UNIT TABLET PO SCH (09:43)
[2018-05-23] MEDS: Topiramate 100 MG TABLET PO SCH ×2 (09:43→20:28)
[2018-05-23] MEDS: Cyanocobalamin (B-12) 1,000 MCG TABLET PO SCH (09:43)
[2018-05-23] MEDS: Furosemide 20 MG TABLET PO SCH (09:44)
[2018-05-23] MEDS: *HR* Warfarin 5 MG TABLET PO SCH (17:47)
[2018-05-23] MEDS: Gabapentin 400 MG CAPSULE PO SCH (20:27)
[2018-05-23] MEDS: Loratadine 10 MG TABLET PO SCH (20:28)
[2018-05-24] MEDS: *HR* OxyCODONE Immed Rel 5 MG TABLET PO PRN ×4 (01:17→18:16)
[2018-05-24] MEDS: traMADol 50 MG TABLET PO SCH ×4 (01:17→18:16)
[2018-05-24] MEDS: Acetaminophen 325 MG TABLET PO SCH ×4 (01:17→18:15)
[2018-05-24] MEDS: Ascorbic Acid 500 MG TABLET PO SCH (06:11)
[2018-05-24] MEDS: *HR* Enoxaparin 30 MG/0.3 ML SYRINGE SQ SCH ×2 (06:11→17:33)
[2018-05-24] MEDS: Cholecalciferol (D-3) 1,000 UNIT TABLET PO SCH (09:00)
--- NOTE | 2018-05-24 10:22 | Internal Med Progress Note ---
Date of Encounter: 05/23/18 Time of Encounter: 17:00 - Assessment and plan (1) Status post total knee replacement, left Current Visit: No Status: Acute Assessment and plan: May 20. Continue PT and OT intervention. INR has increased to 1.4. Continue Lovenox. May 23. INR is increased 1.7. Increase MWF Coumadin to 6 mg and continue to monitor INR. (2) Cardiomyopathy Current Visit: No Status: Chronic Assessment and plan: May 20. Continue Lasix and Lopressor. Qualifiers: Cardiomyopathy type: unspecified Qualified Code(s): I42.9 - Cardiomyopathy, unspecified (3) History of pulmonary embolism Current Visit: No Status: Acute Assessment and plan: May 20. Continue Coumadin with bridging Lovenox. (4) HTN (hypertension) Current Visit: No Status: Chronic Assessment and plan: May 20. BP stable. Continue present dose metoprolol. Qualifiers: Hypertension type: essential hypertension Qualified Code(s): I10 - Es sential (primary) hypertension (5) Anemia Current Visit: No Status: Chronic Assessment and plan: May 20. Anemia testing showed iron 41, transferrin saturation 11%, transferrin 255, ferritin 47, B12 203, and folate 7.0. She will be given a B12 injection and start oral B12 supplement. Ferrous sulfate with ascorbic acid will also be started. Qualifiers: Anemia type: unspecified type Qualified Code(s): D64.9 - Anemia, unspecified (6) Low vitamin D level Current Visit: Yes Status: Acute Assessment and plan: May 20. Vitamin D level returned low at 15. Supplemental vitamin D will be ordered. - Subjective Interval history: May 20. She has no new complaints. She states her pain has lessened on the new pain management Rx. May 23. She has no new complaints. Her left leg is causing pain and she inquired about increasing gabapentin dose. - Constitutional Vitals: Temp Pulse Resp BP Pulse Ox 98.7 F 80 19 108/73 95 05/23/18 18:35 05/24/18 01:16 05/23/18 18:35 05/24/18 06:06 05/23/18 18:35 Exam: She is resting comfortably in bed and appears in no acute distress. Her affect is overall cheerful. I reviewed her medications and lab results. Internal Medicine: Result - Labs CBC & Chem 7: 05/20/18 04:49 05/19/18 04:35 - ABG Interpretation ABG results: PT/INR, D-dimer PT 19.4 Seconds (9.4-12.1) H 05/23/18 05:11 - Impressions Impressions Knee X-Ray 05/23/18 16:33 IMPRESSION: Stable left knee post arthroplasty. No acute osseous abnormality. D/ / Isreal Sandoval MD / Isreal Sandoval MD Interpreting Provider: Isreal Sandoval MD Consult Discharge Plan - Plan Referrals: Aylin Smith MD [Primary Care Provider] - 1 week
[2018-05-24] MEDS: Gabapentin 400 MG CAPSULE PO SCH ×3 (11:09→21:33)
[2018-05-24] MEDS: Cyanocobalamin (B-12) 1,000 MCG TABLET PO SCH (11:11)
[2018-05-24] MEDS: Ketoconazole Shampoo 120 ML BOTTLE TP SCH (11:11)
[2018-05-24] MEDS: Furosemide 20 MG TABLET PO SCH (11:11)
[2018-05-24] MEDS: Topiramate 100 MG TABLET PO SCH ×2 (11:11→21:33)
[2018-05-24] MEDS: *HR* Warfarin 3 MG TABLET PO SCH (17:33)
[2018-05-24] MEDS: Loratadine 10 MG TABLET PO SCH (21:33)
[2018-05-25] MEDS: Acetaminophen 325 MG TABLET PO SCH ×4 (00:13→18:10)
[2018-05-25] MEDS: traMADol 50 MG TABLET PO SCH ×4 (00:14→18:04)
[2018-05-25] MEDS: *HR* OxyCODONE Immed Rel 5 MG TABLET PO PRN ×4 (00:14→21:17)
[2018-05-25] MEDS: *HR* Enoxaparin 30 MG/0.3 ML SYRINGE SQ SCH ×2 (06:25→18:11)
[2018-05-25] MEDS: Ascorbic Acid 500 MG TABLET PO SCH (06:25)
[2018-05-25] MEDS: Topiramate 100 MG TABLET PO SCH ×2 (08:14→21:16)
[2018-05-25] MEDS: Cholecalciferol (D-3) 1,000 UNIT TABLET PO SCH (08:14)
[2018-05-25] MEDS: Cyanocobalamin (B-12) 1,000 MCG TABLET PO SCH (08:14)
[2018-05-25] MEDS: Gabapentin 400 MG CAPSULE PO SCH ×3 (08:15→21:16)
[2018-05-25] MEDS: Furosemide 20 MG TABLET PO SCH (08:15)
[2018-05-25] MEDS: *HR* FentaNYL PATCH 12 MCG PATCH TD SCH (11:40)
[2018-05-25] MEDS: *HR* Warfarin 5 MG TABLET PO SCH (18:10)
[2018-05-25] MEDS: Loratadine 10 MG TABLET PO SCH (21:17)
[2018-05-26] MEDS: Acetaminophen 325 MG TABLET PO SCH ×4 (01:01→18:15)
[2018-05-26] MEDS: traMADol 50 MG TABLET PO SCH ×4 (01:01→18:15)
[2018-05-26] MEDS: *HR* OxyCODONE Immed Rel 5 MG TABLET PO PRN ×3 (03:29→16:17)
[2018-05-26] MEDS: Ascorbic Acid 500 MG TABLET PO SCH (06:30)
[2018-05-26] MEDS: *HR* Enoxaparin 30 MG/0.3 ML SYRINGE SQ SCH ×2 (06:30→18:15)
[2018-05-26] MEDS: Cholecalciferol (D-3) 1,000 UNIT TABLET PO SCH (08:22)
[2018-05-26] MEDS: Furosemide 20 MG TABLET PO SCH (08:22)
[2018-05-26] MEDS: Cyanocobalamin (B-12) 1,000 MCG TABLET PO SCH (08:22)
[2018-05-26] MEDS: Topiramate 100 MG TABLET PO SCH ×2 (08:23→19:56)
[2018-05-26] MEDS: Gabapentin 400 MG CAPSULE PO SCH ×3 (08:23→19:55)
--- NOTE | 2018-05-26 15:37 | Internal Med Progress Note ---
Date of Encounter: 05/26/18 Time of Encounter: 15:30 - Assessment and plan (1) Status post total knee replacement, left Current Visit: No Status: Acute Assessment and plan: May 20. Continue PT and OT intervention. INR has increased to 1.4. Continue Lovenox. May 23. INR is increased 1.7. Increase MWF Coumadin to 6 mg and continue to monitor INR. May 26. Continue therapy intervention. Continue Lovenox and Coumadin and recheck labs in a.m. Increase Duragesic (2) Cardiomyopathy Current Visit: No Status: Chronic Assessment and plan: May 20. Continue Lasix and Lopressor. Qualifiers: Cardiomyopathy type: unspecified Qualified Code(s): I42.9 - Cardiomyopathy, unspecified (3) History of pulmonary embolism Current Visit: No Status: Acute Assessment and plan: May 20. Continue Coumadin with bridging Lovenox. (4) HTN (hypertension) Current Visit: No Status: Chronic Assessment and plan: May 20. BP stable. Continue present dose metoprolol. Qualifiers: Hypertension type: essential hypertension Qualified Code(s): I10 - Essential (primary) hypertension (5) Anemia Current Visit: No Status: Chronic Assessment and plan: May 20. Anemia testing showed iron 41, transferrin saturation 11%, transferrin 255, ferritin 47, B12 203, and folate 7.0. She will be given a B12 injection and start oral B12 supplement. Ferrous sulfate with ascorbic acid will also be started. May 26. Recheck labs in a.m. Qualifiers: Anemia type: unspecified type Qualified Code(s): D64.9 - Anemia, unspecified (6) Low vitamin D level Current Visit: Yes Status: Acute Assessment and plan: May 20. Vitamin D level returned low at 15. Supplemental vitamin D will be ordered. - Subjective Interval history: May 20. She has no new complaints. She states her pain has lessened on the new pain management Rx. May 23. She has no new complaints. Her left leg is causing pain and she inquired about increasing gabapentin dose. May 26. She states her left leg pain has increased over the past 2-3 days. - Constitutional Vitals: Temp Pulse Resp BP Pulse Ox 97.5 F L 72 14 118/62 97 05/26/18 06:41 05/26/18 06:41 05/26/18 06:41 05/26/18 10:11 05/26/18 06:41 Exam: She is resting comfortably in bed and appears in minimal distress. The Cryo/Cuff is in place over the left knee. I reviewed her medications and lab results. Internal Medicine: Result - Labs CBC & Chem 7: 05/20/18 04:49 05/19/18 04:35 - ABG Interpretation ABG results: PT/INR, D-dimer PT 19.4 Seconds (9.4-12.1) H 05/23/18 05:11 Consult Discharge Plan - Plan Referrals: Aylin Smith MD [Primary Care Provider] - 1 week
[2018-05-26] MEDS: *HR* FentaNYL PATCH 25 MCG PATCH TD SCH (16:17)
[2018-05-26] MEDS: *HR* Warfarin 5 MG TABLET PO SCH (18:15)
[2018-05-26] MEDS: Loratadine 10 MG TABLET PO SCH (19:56)
[2018-05-27] MEDS: *HR* OxyCODONE Immed Rel 5 MG TABLET PO PRN ×4 (00:09→20:07)
[2018-05-27] MEDS: Acetaminophen 325 MG TABLET PO SCH ×4 (01:18→17:24)
[2018-05-27] MEDS: traMADol 50 MG TABLET PO SCH ×4 (01:18→17:24)
[2018-05-27 05:14] LABS: Basophils # 0.1 K/mcL (0.0-0.2); Basophils % 0.9 %; Eosinophils # 0.3 K/mcL (0.0-0.6); Eosinophils % 4.3 %; Hematocrit 32.6 % (35.3-44.9); Immature Granulocytes % 1.2 % (0-4); Lymphocytes # 1.7 K/mcL (0.6-4.6); Lymphocytes % 25.6 %; Mean Corpuscular HGB Conc 30.7 g/dL (31.6-35.5); Mean Corpuscular Hemoglobin 28.7 pg (28.0-33.3); Mean Corpuscular Volume 93.4 fL (83.0-100.0); Mean Platelet Volume 8.5 fL (9.4-12.4); Monocytes # 0.8 K/mcL (0.0-1.3); Monocytes % 11.7 %; Neutrophils # 3.8 K/mcL (1.6-8.9); Platelet Count 351 K/mcL (140-400); Red Blood Count 3.49 M/mcL (3.82-4.97); Red Cell Distribution Width 17.3 % (11.5-14.5); Segmented Neutrophils % 56.3 %
[2018-05-27 05:36] LABS: INR 1.7; Prothrombin Time 19.7 Seconds (9.4-12.1)
[2018-05-27 05:47] LABS: BUN/Creatinine Ratio 33 (6-26); Blood Urea Nitrogen 23 mg/dL (6-20); Calcium 9.1 mg/dL (8.6-10.3); Carbon Dioxide 26 mEq/L (23-29); Chloride 106 mEq/L (98-107); Glucose 106 mg/dL (70-105); Osmolality,Calculated 288 (280-300); Potassium 3.7 mEq/L (3.5-5.1); Sodium 137 mEq/L (136-145); eGFR For Non-African Americans > 60 (> 60)
[2018-05-27] MEDS: *HR* Enoxaparin 30 MG/0.3 ML SYRINGE SQ SCH ×2 (06:47→17:24)
[2018-05-27] MEDS: Ascorbic Acid 500 MG TABLET PO SCH (06:47)
[2018-05-27] MEDS: Topiramate 100 MG TABLET PO SCH ×2 (08:02→20:07)
[2018-05-27] MEDS: Cyanocobalamin (B-12) 1,000 MCG TABLET PO SCH (08:02)
[2018-05-27] MEDS: Gabapentin 400 MG CAPSULE PO SCH ×3 (08:02→20:06)
[2018-05-27] MEDS: Furosemide 20 MG TABLET PO SCH (08:02)
[2018-05-27] MEDS: Cholecalciferol (D-3) 1,000 UNIT TABLET PO SCH (08:03)
[2018-05-27] MEDS: Ketoconazole Shampoo 120 ML BOTTLE TP SCH (08:05)
[2018-05-27] MEDS: *HR* Warfarin 3 MG TABLET PO SCH (17:27)
[2018-05-27] MEDS: Loratadine 10 MG TABLET PO SCH (20:07)
[2018-05-28] MEDS: traMADol 50 MG TABLET PO SCH ×4 (00:46→17:48)
[2018-05-28] MEDS: Acetaminophen 325 MG TABLET PO SCH ×4 (00:47→17:48)
[2018-05-28] MEDS: *HR* OxyCODONE Immed Rel 5 MG TABLET PO PRN ×4 (03:01→22:43)
[2018-05-28] MEDS: *HR* Enoxaparin 30 MG/0.3 ML SYRINGE SQ SCH ×2 (06:53→17:47)
[2018-05-28] MEDS: Ascorbic Acid 500 MG TABLET PO SCH (06:53)
[2018-05-28] MEDS: Topiramate 100 MG TABLET PO SCH ×2 (09:38→20:29)
[2018-05-28] MEDS: Furosemide 20 MG TABLET PO SCH (09:38)
[2018-05-28] MEDS: Gabapentin 400 MG CAPSULE PO SCH ×3 (09:38→20:29)
[2018-05-28] MEDS: Cyanocobalamin (B-12) 1,000 MCG TABLET PO SCH (09:38)
[2018-05-28] MEDS: Cholecalciferol (D-3) 1,000 UNIT TABLET PO SCH (09:42)
[2018-05-28] MEDS: *HR* Warfarin 5 MG TABLET PO SCH (17:48)
--- NOTE | 2018-05-28 17:55 | Internal Med Progress Note ---
Date of Encounter: 05/28/18 Time of Encounter: 17:45 - Assessment and plan (1) Status post total knee replacement, left Current Visit: No Status: Acute Assessment and plan: May 20. Continue PT and OT intervention. INR has increased to 1.4. Continue Lovenox. May 23. INR is increased 1.7. Increase MWF Coumadin to 6 mg and continue to monitor INR. May 26. Continue therapy intervention. Continue Lovenox and Coumadin and recheck labs in a.m. Increase Duragesic May 28. Continue present Rx. Check INR in a.m. (2) Cardiomyopathy Current Visit: No Status: Chronic Assessment and plan: May 20. Continue Lasix and Lopressor. Qualifiers: Cardiomyopathy type: unspecified Qualified Code(s): I42.9 - Cardiomyopathy, unspecified (3) History of pulmonary embolism Current Visit: No Status: Acute Assessment and plan: May 20. Continue Coumadin with bridging Lovenox. May 28. Now on Coumadin 7.5 mg daily. Check INR in a.m. (4) HTN (hypertension) Current Visit: No Status: Chronic Assessment and plan: May 20. BP stable. Continue present dose metoprolol. Qualifiers: Hypertension type: essential hypertension Qualified Code(s): I10 - Essential (primary) hypertension (5) Anemia Current Visit: No Status: Chronic Assessment and plan: May 20. Anemia testing showed iron 41, transferrin saturation 11%, tra nsferrin 255, ferritin 47, B12 203, and folate 7.0. She will be given a B12 injection and start oral B12 supplement. Ferrous sulfate with ascorbic acid will also be started. May 26. Recheck labs in a.m. May 28. Hemoglobin stable at 10.0 on May 27. Qualifiers: Anemia type: unspecified type Qualified Code(s): D64.9 - Anemia, unspeci fied (6) Low vitamin D level Current Visit: Yes Status: Acute Assessment and plan: May 20. Vitamin D level returned low at 15. Supplemental vitamin D will be ordered. - Subjective Interval history: May 20. She has no new complaints. She states her pain has lessened on the new pain management Rx. May 23. She has no new complaints. Her left leg is causing pain and she inquired about increasing gabapentin dose. May 26. She states her left leg pain has increased over the past 2-3 days. May 28. She states her pain has lessened. - Constitutional Vitals: Temp Pulse Resp BP Pulse Ox 97.8 F 84 16 100/69 95 05/28/18 06:48 05/28/18 06:48 05/28/18 06:48 05/28/18 06:48 05/28/18 11:03 Exam: She is resting comfortably in bed. She became tearful when she discussed her knee flexion angle was only 56 degrees. I reviewed her medications and lab results. Internal Medicine: Result - Labs CBC & Chem 7: 05/27/18 04:45 05/27/18 04:45 - ABG Interpretation ABG results: PT/INR, D-dimer PT 19.7 Seconds (9.4-12.1) H 05/27/18 04:45 Consult Discharge Plan - Plan Referrals: Aylin Smith MD [Primary Care Provider] - 1 week
[2018-05-28] MEDS: Loratadine 10 MG TABLET PO SCH (20:30)
[2018-05-29] MEDS: traMADol 50 MG TABLET PO SCH ×4 (00:37→17:15)
[2018-05-29] MEDS: Acetaminophen 325 MG TABLET PO SCH ×4 (00:37→17:15)
[2018-05-29] MEDS: Ascorbic Acid 500 MG TABLET PO SCH (06:03)
[2018-05-29] MEDS: *HR* Enoxaparin 30 MG/0.3 ML SYRINGE SQ SCH (06:03)
[2018-05-29 06:40] LABS: Prothrombin Time 22.2 Seconds (9.4-12.1)
[2018-05-29] MEDS: Gabapentin 400 MG CAPSULE PO SCH ×3 (07:52→20:53)
[2018-05-29] MEDS: Cyanocobalamin (B-12) 1,000 MCG TABLET PO SCH (07:52)
[2018-05-29] MEDS: Topiramate 100 MG TABLET PO SCH ×2 (07:53→20:53)
[2018-05-29] MEDS: *HR* OxyCODONE Immed Rel 5 MG TABLET PO PRN ×3 (07:53→20:54)
[2018-05-29] MEDS: Cholecalciferol (D-3) 1,000 UNIT TABLET PO SCH (07:54)
[2018-05-29] MEDS: Furosemide 20 MG TABLET PO SCH (07:54)
[2018-05-29] MEDS: Ketoconazole Shampoo 120 ML BOTTLE TP SCH (07:55)
[2018-05-29] MEDS: *HR* Warfarin 5 MG TABLET PO SCH (17:15)
[2018-05-29] MEDS: *HR* FentaNYL PATCH 25 MCG PATCH TD SCH (17:16)
[2018-05-29] MEDS: Loratadine 10 MG TABLET PO SCH (20:53)
[2018-05-30] MEDS: Acetaminophen 325 MG TABLET PO SCH ×2 (00:42→06:21)
[2018-05-30] MEDS: traMADol 50 MG TABLET PO SCH ×2 (00:42→06:21)
[2018-05-30] MEDS: *HR* OxyCODONE Immed Rel 5 MG TABLET PO PRN ×2 (03:41→09:59)
[2018-05-30] MEDS: Ascorbic Acid 500 MG TABLET PO SCH (06:21)
[2018-05-30 06:56] VITALS: BP 107/63
[2018-05-30] MEDS: Furosemide 20 MG TABLET PO SCH (08:14)
[2018-05-30] MEDS: Topiramate 100 MG TABLET PO SCH (08:14)
[2018-05-30] MEDS: Cholecalciferol (D-3) 1,000 UNIT TABLET PO SCH (08:15)
[2018-05-30] MEDS: Cyanocobalamin (B-12) 1,000 MCG TABLET PO SCH (08:16)
[2018-05-30] MEDS: Gabapentin 400 MG CAPSULE PO SCH (08:17)
--- NOTE | 2018-05-30 09:46 | Discharge Summary ---
Date of Encounter: 05/30/18 Time of Encounter: 09:35 - Discharge Diagnosis (1) Status post total knee replacement, left Priority: Primary Status: Acute (2) Cardiomyopathy Priority: Secondary Status: Chronic Qualifiers: Cardiomyopathy type: unspecified Qualified Code(s): I42.9 - Cardiomyopathy, unspecified (3) History of pulmonary embolism Priority: Secondary Status: Acute (4) HTN (hypertension) Priority: Secondary Status: Chronic Qualifiers: Hypertension type: essential hypertension Qualified Code(s): I10 - Essential (primary) hypertension (5) Anemia Priority: Secondary Status: Chronic Qualifiers: Anemia type: unspecified type Qualified Code(s): D64.9 - Anemia, unspecified (6) Low vitamin D level Priority: Secondary Status: Acute Hospital course: Ms. Cuenca is a 58 year old female who underwent revision left robotic-assisted TKR at [facility] May 15. 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 Her postoperative course was unremarkable and she was discharged [facility] swing bed for rehabilitation therapy prior to returning home. Initial orders were written by the discharging physicians at [facility]. I saw her on May 19 and performed a swing bed history and physical. She had physical therapy and occupational therapy evaluations with ongoing intervention. Coumadin dose was increased based on INR to dose of 7.5 mg daily. INR was therapeutic at this dose. She was given Duragesic patch during hospital stay. This will not be continued at discharge. She will continue with Roxicodone 5 mg every 4 hours prn with 20 pills dispensed at discharge. Her PCP/orthopedist can determine if additional medication is needed. She will continue gabapentin, tramadol, and Tylenol also. Anemia testing showed iron 41, transferrin saturation 11%, transferrin 255, ferritin 47, B12 203, and folate 7.0. She was given a B12 injection and started on oral B12 supplement. She was also started on ferrous sulfate with ascorbic acid supplement. She will continue these at discharge. Vitamin D level returned low at 15. She was started on vitamin D supplementation and will continue this at discharge. She will follow with her PCP Dr. Smith within 1 week. She will follow with her orthopedist as directed. - Time Spent with Patient Total time spent providing and/or coordinating discharge services: - Discharge Medications Prescriptions: New Ascorbic Acid [Vitamin C] 500 mg PO 0630 #30 tablet Cholecalciferol (D-3) [Vitamin D] 2,000 unit PO DAILY #60 tablet Cyanocobalamin (B-12) [Vitamin B12] 1,000 mcg PO DAILY #30 tablet Ferrous Sulfate 325 mg PO 0630 #30 tablet Gabapentin [Neurontin] 800 mg PO TID 7 Days #42 capsule OxyCODONE Immed Rel [Roxicodone 5 MG] 5 mg PO Q4H PRN 5 Days #20 tablet PRN Reason: Severe Pain Warfarin [Coumadin] 7.5 mg PO DAILY@1800 tablet Continue Duloxetine HCl [Cymbalta] 60 mg PO BID Furosemide [Lasix] 20 mg PO DAILY Metoprolol [Lopressor] 50 mg PO BID Pantoprazole Sodium [Protonix] 40 mg PO DAILY Acetaminophen [Extra Strength Non-Aspirin] 1,000 mg PO Q6H PRN PRN Reason: Mild Pain Iron Polysaccharide Complex [Pro Fe] 180 mg PO DAILY Topiramate [Topamax] 100 mg PO BID Buspirone HCl [Buspar] 5 mg PO QAM Buspirone HCl [Buspar] 10 mg PO HS Nystatin POWDER [Nystop] 1 appl TP BID PRN PRN Reason: Rash Nystatin Cream [Mycostatin Cream] 1 appl TP BID PRN PRN Reason: Rash HydrOXYzine 10 - 20 mg PO BID PRN PRN Reason: Anxiety Triamcinolone Acetonide 1 appl TP BID PRN PRN Reason: Rash Ketoconazole Shampoo [Nizoral Shampoo] 1 appl TP 3XW Metoclopramide HCl 5 mg PO ACHS Cetirizine HCl [Zyrtec] 10 mg PO HS Discontinued Warfarin Sodium 5 mg PO MOWEFR Warfarin Sodium 7.5 mg PO SUTUTHSA Enoxaparin [Lovenox] 40 mg SQ Q12HR Home Medications: Duloxetine HCl [Cymbalta] 60 mg PO BID 04/18/17 [History] Furosemide [Lasix] 20 mg PO DAILY 04/18/17 [History] Metoprolol [Lopressor] 50 mg PO BID 04/18/17 [History] Pantoprazole Sodium [Protonix] 40 mg PO DAILY 04/18/17 [History] Cetirizine HCl [Zyrtec] 10 mg PO HS 10/06/17 [History] Metoclopramide HCl 5 mg PO ACHS 10/06/17 [History] Acetaminophen [Extra Strength Non-Aspirin] 1,000 mg PO Q6H PRN 12/19/17 [History] Iron Polysaccharide Complex [Pro Fe] 180 mg PO DAILY 02/04/18 [History] Topiramate [Topamax] 100 mg PO BID 02/04/18 [History] Buspirone HCl [Buspar] 5 mg PO QAM 05/15/18 [History] Buspirone HCl [Buspar] 10 mg PO HS 05/15/18 [History] HydrOXYzine 10 - 20 mg PO BID PRN 05/15/18 [History] Ketoconazole Shampoo [Nizoral Shampoo] 1 appl TP 3XW 05/15/18 [History] Nystatin Cream [Mycostatin Cream] 1 appl TP BID PRN 05/15/18 [History] Nystatin POWDER [Nystop] 1 appl TP BID PRN 05/15/18 [History] Triamcinolone Acetonide 1 appl TP BID PRN 05/15/18 [History] Ascorbic Acid [Vitamin C] 500 mg PO 0630 #30 tablet 05/30/18 [Rx] Cholecalciferol (D-3) [Vitamin D] 2,000 unit PO DAILY #60 tablet 05/30/18 [Rx] Cyanocobalamin (B-12) [Vitamin B12] 1,000 mcg PO DAILY #30 tablet 05/30/18 [Rx] Ferrous Sulfate 325 mg PO 0630 #30 tablet 05/30/18 [Rx] Gabapentin [Neurontin] 800 mg PO TID 7 Days #42 capsule 05/30/18 [Rx] OxyCODONE Immed Rel [Roxicodone 5 MG] 5 mg PO Q4H PRN 5 Days #20 tablet 05/30/18 [Rx] Warfarin [Coumadin] 7.5 mg PO DAILY@1800 tablet 05/30/18 [Rx] Allergies/Adverse Reactions: Allergy/AdvReac Type Severity Reaction Status Date / Time NSAIDS (Non-Steroidal Allergy See Verified 05/15/18 12:43 Anti-Inflamma Comments ibuprofen AdvReac See Verified 05/15/18 12:43 Comments Date of admission: 05/18/18 21:35 Primary care physician: Aylin Smith Consults: 05/18/18 18:58 Consult to Occupational Therapy [CONS] Routine Comment: eval, develop, implement of POC Reason for Consult: eval, develop, implement of POC Does patient have active BEDREST order?: No Is patient medically & hemodynamically stable?: Yes Consult to Physical Therapy [CONS] Routine Comment: eval, develop, implement of POC Reason for Consult: eval, develop, implement of POC Does patient have active BEDREST order?: No Is patient medically & hemodynamically stable?: Yes Consult to Records Management Analyst [CONS] Routine Reason for SW Consult: may need HH upon discharge - Constitutional Vitals: Temp Pulse Resp BP Pulse Ox 97.6 F 72 14 107/63 95 05/30/18 06:53 05/30/18 06:53 05/30/18 06:53 05/30/18 06:53 05/30/18 06:53 - Patient Status Disposition: Home, Self-Care - Discharge Instructions Follow Up With: Aylin Smith MD [Primary Care Provider] - 1 week - Diet and Activity Activity: as per physical therapy Diet: advance to your usual diet
--- NOTE | 2018-05-30 11:04 | Physician Discharge Referral ---
Home Health/Hosp Referral Info Transfer to: Home Health Attending Provider: Uvaldo Provider in Charge Post Discharge: PCP Mikael) - Diagnosis (1) Status post total knee replacement, left Priority: Primary Status: Acute (2) Cardiomyopathy Priority: Secondary Status: Chronic (3) History of pulmonary embolism Priority: Secondary Status: Acute (4) HTN (hypertension) Priority: Secondary Status: Chronic (5) Anemia Priority: Secondary Status: Chronic (6) Low vitamin D level Priority: Secondary Status: Acute - Respiratory Orders Smoking Cessation: Smoking cessation has been advised. For more information, call the [place] Tobacco Quit Line at 0-506-CDCC-NOW. - Diet/Nutrition Diet/Nutrition Orders: Cardiac - Activity Activity Orders: Walker - Services Needed Following services are medically necessary services: Nursing, Home Health Aide, Physical Therapy, Occupational Therapy - Transfer Medications Prescriptions: Ascorbic Acid [Vitamin C] 500 mg PO 0630 #30 tablet Cholecalciferol (D-3) [Vitamin D] 2,000 unit PO DAILY #60 tablet Cyanocobalamin (B-12) [Vitamin B12] 1,000 mcg PO DAILY #30 tablet Ferrous Sulfate 325 mg PO 0630 #30 tablet Gabapentin [Neurontin] 800 mg PO TID 7 Days #42 capsule OxyCODONE Immed Rel [Roxicodone 5 MG] 5 mg PO Q4H PRN 5 Days #20 tablet PRN Reason: Severe Pain Home Medications: Duloxetine HCl [Cymbalta] 60 mg PO BID 04/18/17 [History] Furosemide [Lasix] 20 mg PO DAILY 04/18/17 [History] Metoprolol [Lopressor] 50 mg PO BID 04/18/17 [History] Pantoprazole Sodium [Protonix] 40 mg PO DAILY 04/18/17 [History] Cetirizine HCl [Zyrtec] 10 mg PO HS 10/06/17 [History] Metoclopramide HCl 5 mg PO ACHS 10/06/17 [History] Acetaminophen [Extra Strength Non-Aspirin] 1,000 mg PO Q6H PRN 12/19/17 [History] Iron Polysaccharide Complex [Pro Fe] 180 mg PO DAILY 02/04/18 [History] Topiramate [Topamax] 100 mg PO BID 02/04/18 [History] Buspirone HCl [Buspar] 5 mg PO QAM 04/10/19 [History] Buspirone HCl [Buspar] 10 mg PO HS 05/15/18 [History] HydrOXYzine 10 - 20 mg PO BID PRN 05/15/18 [History] Ketoconazole Shampoo [Nizoral Shampoo] 1 appl TP 3XW 05/15/18 [History] Nystatin Cream [Mycostatin Cream] 1 appl TP BID PRN 05/15/18 [History] Nystatin POWDER [Nystop] 1 appl TP BID PRN 05/15/18 [History] Triamcinolone Acetonide 1 appl TP BID PRN 05/15/18 [History] Ascorbic Acid [Vitamin C] 500 mg PO 0630 #30 tablet 05/30/18 [Rx] Cholecalciferol (D-3) [Vitamin D] 2,000 unit PO DAILY #60 tablet 05/30/18 [Rx] Cyanocobalamin (B-12) [Vitamin B12] 1,000 mcg PO DAILY #30 tablet 05/30/18 [Rx] Ferrous Sulfate 325 mg PO 0630 #30 tablet 05/30/18 [Rx] Gabapentin [Neurontin] 800 mg PO TID 7 Days #42 capsule 05/30/18 [Rx] OxyCODONE Immed Rel [Roxicodone 5 MG] 5 mg PO Q4H PRN 5 Days #20 tablet 05/30/18 [Rx] Warfarin [Coumadin] 7.5 mg PO DAILY@1800 tablet 05/30/18 [Rx] Allergies/Adverse Reactions: Allergy/AdvReac Type Severity Reaction Status Date / Time NSAIDS (Non-Steroidal Allergy See Verified 05/15/18 12:43 Anti-Inflamma Comments ibuprofen AdvReac See Verified 05/15/18 12:43 Comments Certification: Further, I certify that my clinical findings support that this patient is homebound (i.e. absences from home require considerable and taxing effort and are for medical reasons or uatsdin services or infrequently or short duration when for other reasons) because: Homebound Reason: Leaving home requires considerable and taxing effort due to condition (Left total knee replacement with walker ambulation) Attestation: My signature below is to certify that this patient is under my care and that I, or nurse practitioner, or a physician's distribution center assistant working with me, has a [id number] encounter with this patient.
== END 2018-05-30 12:29 | disposition home or self-care (01) | DRG 560 ==
LOC: INPPIK 21:35
PROVIDERS: ADMIT Internal Medicine; ATTEND Internal Medicine